=== PATIENT | male | born 1945 | race Caucasian/White ===

== ENCOUNTER 2021-08-26 10:41 | Outpatient (CLI) | payer MEDICARE, SELFPAY ==
--- NOTE | ~2021-08-26 | MR_ITS ---
EXAMINATION: MR brain/brain stem wo con DATE: 08/26/2021 11:55 INDICATION: Other amnesia. TECHNIQUE: Magnetic resonance imaging (MRI) of the brain and brainstem was performed without intraven ous contrast. Sequences included sagittal and axial T1-weighted FSE, axial diffusion-weighted FS EPI, axial T2*-weighted GRE, axial T2-weighted FLAIR Propeller, and axial T2-weighted Propeller. Apparent diffusion coefficient (ADC) maps were created. COMPARISON: Head CT 08/22/2010 FINDINGS: There is diffuse brain volume loss. There are scattered areas of nonspecific increased T2-w eighted signal intensity in the cerebral white matter, which is within normal limits for the patient' s age. There is no intracranial hemorrhage, acute infarction, or abnormal intracranial mass lesion. T he ventricles are normal in size. The orbits are normal. There is mucosal thickening in the paranasal sinuses. The mastoid air cells are normal. IMPRESSION: 1. Normal aging brain. Reviewed, dictated and finalized at location A. T METAL ERECTOR IMPRESSION: 1. Normal aging brain.
== END 2021-08-26 10:42 | disposition home or self-care (01) ==
PROVIDERS: PCP Family Medicine; Visit Provider Nurse Practitioner Family
DX: R41.3 Other amnesia (principal); R51.9 Headache, unspecified
CPT/HCPCS: 70551

== ENCOUNTER 2022-02-01 14:17 | Emergency (ER) | payer MEDICARE, SELFPAY ==
[2022-02-01 14:24] VITALS: BP 116/79; PULSE 76; RESP 20; TEMP 36.4; O2SAT 96
--- NOTE | 2022-02-01 14:25 | ED.URI ---
HPI - URI/Sore Throat General Chief Complaint: Upper Respiratory Infection Stated Complaint: uri Time Seen by Provider: 02/01/22 14:25 Source: patient, family, RN notes reviewed and old records reviewed Mode of arrival: ambulatory Limitations: no limitations History of Present Illness HPI Narrative: 76-year-old male presents to the [facility] with complaints of left-sided sinus pressure with congestion, Left frontal headache, left ear pain since yesterday. States he tried couple [id number] products with no relief. Denies any fevers. Denies chest pain or shortness of breath. No abdominal pain MD elicited complaint: rhinorrhea, nasal congestion and sinus pain Pertinent past history: sinusitis Consistency: constant Related Data Home Medications Medication Instructions Recorded Confirmed finasteride 5 mg PO DAILY 08/27/19 02/01/22 aspirin 325 mg tablet,delayed 325 mg PO DAILY 08/17/21 02/01/22 release duloxetine 30 mg capsule,delayed 30 mg PO DAILY 09/21/21 02/01/22 release Allergies Allergy/AdvReac Type Severity Reaction Status Date / Time No Known Allergies Allergy Verified 12/11/21 10:37 Review of Systems Review of Systems: All systems reviewed & are unremarkable except as noted in HPI and below Constitutional: Constitutional: Reports no additional constitutional complaints, Denies chills, Denies fever(s) and Denies headache(s) Eyes: Eyes: Reports no additional eye complaints, Denies change in vision and Denies photophobia ENT: Reports as per HPI, Denies change in voice, Denies vertigo, Denies dizziness, Reports headache(s), Denies lip swelling, Reports nasal congestion, Reports nasal discharge, Reports post nasal drip, Reports sinus pain, Reports sinus pressure and Denies sore throat Cardiovascular: Cardiovascular: Reports no additional cardiovascular complaints, Denies chest pain, Denies syncope, Denies rapid heart rate and Denies dyspnea Respiratory: Respiratory: Reports no additional respiratory complaints, Denies cough, Denies dyspnea and Denies wheezing Gastrointestinal: Gastrointestinal: Reports no additional gastrointestinal complaints, Denies abdominal pain, Denies diarrhea, Denies nausea and Denies vomiting Musculoskeletal: Musculoskeletal: Reports no additional musculoskeletal complaints, Denies back pain and Denies numbness Integumentary/Breasts: Skin/Breast: Reports system reviewed and no additional complaints, except as docu Neurologic: Reports system reviewed and no additional complaints, except as documented, Denies vertigo, Denies dizziness, Denies syncope, Denies headache(s), Denies focal weakness and Denies numbness Psychiatric: Psychiatric: Reports no additional psychiatric complaints Allergic/Immunologic: Allergic/Immunologic: Reports no additional allergic/immunologic complaints and Denies wheezing PMFSH Past Medical History Medical History Acute sinusitis, unspecified Allergic contact dermatitis due to plants, except food Basal cell carcinoma of nose BMI 26.0-26.9,adult BMI 27.0-27.9,adult BMI 28.0-28.9,adult Body mass index [BMI] 29.0-29.9, adult (09/24/17) BPH (benign prostatic hyperplasia) Chronic fatigue Depression Dietary counseling and surveillance (08/23/16) Elevated BUN Elevated glucose Encounter for immunization (07/06/19) Encounter for screening for malignant neoplasm of prostate History of skin cancer History of vitamin D deficiency Hx of nephrolithotomy with removal of calculi Hypothyroid Insomnia due to medical condition Leg swelling Low vitamin B12 level Lung nodule Major depressive disorder, single episode, unspecified Mixed hyperlipidemia Obesity AIDA (obstructive sleep apnea) Other viral agents as the cause of diseases classified elsewhere Patent foramen ovale Surgically repaired Pre-operative clearance Primary osteoarthritis of right knee Screening for diabetes mellitus TIA (transient ischemic at
== END 2022-02-01 14:42 | disposition home or self-care (01) ==
PROVIDERS: Emergency Provider Nurse Practitioner
DX: J32.9 Chronic sinusitis, unspecified (principal); N40.0 Benign prostatic hyperplasia without lower urinary tract symptoms; Z79.82 Long term (current) use of aspirin; Z85.828 Personal history of other malignant neoplasm of skin; E78.2 Mixed hyperlipidemia; E03.9 Hypothyroidism, unspecified; G47.33 Obstructive sleep apnea (adult) (pediatric); M17.11 Unilateral primary osteoarthritis, right knee; Z86.73 Personal history of transient ischemic attack (TIA), and cerebral infarction without residual deficits; Z96.652 Presence of left artificial knee joint; Z96.612 Presence of left artificial shoulder joint; Z96.611 Presence of right artificial shoulder joint; Z90.89 Acquired absence of other organs
CPT/HCPCS: 99213; G0463

== ENCOUNTER 2023-02-18 09:15 | Outpatient (CLI) | payer MEDICARE, SELFPAY ==
[2023-02-18 09:47] LABS: Basophils Absolute Auto 0.1 K/mm3 (0.0-0.1); Basophils Percent Auto 1.6 % (0.2-1.2); Eosinophils Absolute Auto 0.5 K/mm3 (0-0.3); Eosinophils Percent Auto 9.1 % (0-4.4); Hematocrit 46.3 % (42.0-52.0); Immature Granulocyte Absolute 0.01 K/mm3 (0.00-0.031); Immature Granulocyte Percent A 0.2 % (0-0.5); Lymphocytes Absolute Auto 2.31 K/mm3 (0.9-3.2); Lymphocytes Percent Auto 41.8 % (18.3-44.2); Mean Corpuscular HGB Conc 32.4 g/dl (32-36); Mean Corpuscular Hemoglobin 30.5 pg (26-34); Mean Corpuscular Volume 94.1 fl (80-100); Mean Platelet Volume 10.2 fl (7.4-10.4); Monocytes Absolute Auto 0.5 K/mm3 (0.1-0.6); Monocytes Percent Auto 8.9 % (2.6-8.5); Neutrophils Absolute Auto 2.1 K/mm3 (1.3-6.7); Neutrophils Percent Auto 38.4 % (45.5-73.1); Platelet Count Result 205 k/mm3 (150-375); Red Blood Count 4.92 M/mm3 (4.6-6.20); Red Cell Distribution Width 13.3 % (11.5-14.5); White Blood Count 5.5 K/mm3 (4.5-10.0)
[2023-02-18 09:59] LABS: Alanine Aminotransferase 22 U/L (6-50); Albumin Level 4.1 g/dL (3.5-5.1); Alkaline Phosphatase 71 U/L (38-126); Anion Gap 6 mmol/L (8-16); Aspartate Amino Transferase 31 U/L (17-59); Bilirubin,Total 0.8 mg/dL (0.2-1.3); Blood Urea Nitrogen 22 mg/dL (9-20); Calcium 9.4 mg/dL (8.4-10.2); Carbon Dioxide 29 mmol/L (22-30); Chloride 105 mmol/L (98-107); Cholesterol 208 mg/dL (0-200); Estimated Glomerular Filt Rate 59; Glucose 79 mg/dL (65-110); HDL Direct 43 mg/dL; Potassium 3.8 mmol/L (3.4-5.0); Sodium 140 mmol/L (137-145); Triglycerides 112 mg/dL (<150)
[2023-02-18 10:10] LABS: LDL Cholesterol Direct 132 mg/dL
[2023-02-18 10:13] LABS: Iron 68 ug/dL (49-181)
[2023-02-18 10:28] LABS: Prostate Specific Antigen 1.2 ng/mL (< OR = 4.0); Thyroid Stimulating Hormone 0.162 uIU/mL (0.465-4.680)
[2023-02-18 10:31] LABS: Free T4 Free Thyroxine 1.38 ng/mL (0.78-2.19); Vitamin D 25 Hydroxy 23.3 ng/mL
[2023-02-18 10:52] LABS: Percent Iron Saturation 20 % (20-50)
== END 2023-02-18 09:16 | disposition home or self-care (01) ==
PROVIDERS: PCP Family Medicine; Visit Provider Family Medicine
DX: I48.0 Paroxysmal atrial fibrillation (principal); N40.0 Benign prostatic hyperplasia without lower urinary tract symptoms; Z12.5 Encounter for screening for malignant neoplasm of prostate; D64.9 Anemia, unspecified; E55.9 Vitamin D deficiency, unspecified; E03.9 Hypothyroidism, unspecified; E78.2 Mixed hyperlipidemia; Z13.220 Encounter for screening for lipoid disorders
CPT/HCPCS: 36415; 80048; 80061; 80076; 82306; 82607; 83540; 83550; 84153; 84439; 84443; 85025; G0103

== ENCOUNTER 2023-05-08 15:02 | Outpatient (CLI) | payer MEDICARE, SELFPAY ==
--- NOTE | ~2023-05-08 | XR_ITS ---
EXAMINATION: XR chest 2V Exam Date/Time: 05/08/2023 15:22 CDT HISTORY: J18.9 - Pneumonia, unspecified organism Comparison: 08/27/2019. RESULT: Lines, tubes, and devices: Bilateral shoulder arthroplasties. Atrial occlusion device. Lungs and pleura: Low volumes. Elevated right hemidiaphragm. Calcified right lung granuloma. Streaky bibasilar opacities. Minimal bilateral posterior costophrenic angle blunting. Cardiomediastinal silhouette: Stable. Other: No acute osseous or upper abdominal finding. IMPRESSION: Bibasilar atelectasis/consolidation. Trace bilateral pleural effusions. Reviewed, dictated and finalized at location K.
[2023-05-08 15:49] LABS: Basophils Absolute Auto 0.1 K/mm3 (0.0-0.1); Basophils Percent Auto 0.7 % (0.2-1.2); Eosinophils Absolute Auto 0.5 K/mm3 (0-0.3); Eosinophils Percent Auto 2.9 % (0-4.4); Hematocrit 42.4 % (42.0-52.0); Hemoglobin 13.6 g/dL (14.0-18.0); Immature Granulocyte Absolute 0.09 K/mm3 (0.00-0.031); Immature Granulocyte Percent A 0.6 % (0-0.5); Lymphocytes Absolute Auto 3.29 K/mm3 (0.9-3.2); Lymphocytes Percent Auto 20.9 % (18.3-44.2); Mean Corpuscular HGB Conc 32.1 g/dl (32-36); Mean Corpuscular Hemoglobin 29.6 pg (26-34); Mean Corpuscular Volume 92.2 fl (80-100); Mean Platelet Volume 10.7 fl (7.4-10.4); Monocytes Absolute Auto 1.1 K/mm3 (0.1-0.6); Monocytes Percent Auto 6.7 % (2.6-8.5); Neutrophils Absolute Auto 10.7 K/mm3 (1.3-6.7); Neutrophils Percent Auto 68.2 % (45.5-73.1); Platelet Count Result 282 k/mm3 (150-375); Red Cell Distribution Width 14.8 % (11.5-14.5); White Blood Count 15.7 K/mm3 (4.5-10.0)
== END 2023-05-08 15:03 | disposition home or self-care (01) ==
PROVIDERS: PCP Family Medicine; Visit Provider Physician Assistant Medical
DX: J18.9 Pneumonia, unspecified organism (principal); J98.11 Atelectasis
CPT/HCPCS: 36415; 71046; 85025

== ENCOUNTER 2023-05-27 12:44 | Outpatient (CLI) | payer MEDICARE, SELFPAY ==
--- NOTE | ~2023-05-27 | XR_ITS ---
Clinical Indication: Pneumonia PA and lateral views of the chest: Comparison: 05/08/2023 Findings: Stable calcified right upper lobe granuloma. The lungs are otherwise clear, without evidenc e of focal consolidation or pleural effusion. Stable eventration of the right hemidiaphragm. Cardiome diastinal silhouette is within normal limits. Chronic left rib fracture deformities are again noted. Bilateral shoulder arthroplasties are present. Impression: No acute pulmonary abnormality. Reviewed, dictated and finalized at location . Impression: No acute pulmonary abnormality.
[2023-05-27 13:09] LABS: Basophils Absolute Auto 0.1 K/mm3 (0.0-0.1); Eosinophils Absolute Auto 0.6 K/mm3 (0-0.3); Eosinophils Percent Auto 6.3 % (0-4.4); Hematocrit 42.1 % (42.0-52.0); Hemoglobin 13.4 g/dL (14.0-18.0); Immature Granulocyte Absolute 0.04 K/mm3 (0.00-0.031); Immature Granulocyte Percent A 0.4 % (0-0.5); Lymphocytes Absolute Auto 2.83 K/mm3 (0.9-3.2); Lymphocytes Percent Auto 27.7 % (18.3-44.2); Mean Corpuscular HGB Conc 31.8 g/dl (32-36); Mean Corpuscular Hemoglobin 30.1 pg (26-34); Mean Corpuscular Volume 94.6 fl (80-100); Mean Platelet Volume 10.3 fl (7.4-10.4); Monocytes Absolute Auto 0.6 K/mm3 (0.1-0.6); Monocytes Percent Auto 6.1 % (2.6-8.5); Neutrophils Percent Auto 58.5 % (45.5-73.1); Platelet Count Result 239 k/mm3 (150-375); Red Blood Count 4.45 M/mm3 (4.6-6.20); Red Cell Distribution Width 15.3 % (11.5-14.5); White Blood Count 10.2 K/mm3 (4.5-10.0)
[2023-05-27 13:20] LABS: Anion Gap 8 mmol/L (8-16); Blood Urea Nitrogen 16 mg/dL (9-20); Calcium 10.1 mg/dL (8.4-10.2); Carbon Dioxide 28 mmol/L (22-30); Chloride 104 mmol/L (98-107); Estimated Glomerular Filt Rate > 60; Glucose 96 mg/dL (65-110); Sodium 140 mmol/L (137-145)
== END 2023-05-27 12:45 | disposition home or self-care (01) ==
PROVIDERS: PCP Family Medicine; Visit Provider Family Medicine
DX: J18.9 Pneumonia, unspecified organism (principal); J90 Pleural effusion, not elsewhere classified
CPT/HCPCS: 36415; 71046; 80048; 85025

== ENCOUNTER 2023-06-20 15:31 | Outpatient (CLI) | payer MEDICARE, SELFPAY ==
--- NOTE | ~2023-06-20 | US_ITS ---
EXAMINATION: US thyroid DATE: 06/20/2023 16:15 INDICATION: Nontoxic single thyroid nodule. TECHNIQUE: Multiple ultrasound images of the thyroid were obtained. COMPARISON: Ultrasound 07/21/2012 FINDINGS: The right thyroid lobe is absent. The left thyroid lobe measures 4.4 x 1.7 x 1.9 cm. The left thyroi d lobe demonstrates heterogeneous echogenicity and increased vascularity. IMPRESSION: 1. 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 2. Right hemithyroidectomy. Reviewed, dictated and finalized at location E. IMPRESSION: 1. Chronically heterogeneous, hypervascular left thyroid lobe, likely chronic l ymphocytic (Dionisio) thyroiditis. 2. Right hemithyroidectomy.
== END 2023-06-20 15:32 | disposition home or self-care (01) ==
PROVIDERS: PCP Family Medicine; Visit Provider Physician Assistant Medical
DX: E04.1 Nontoxic single thyroid nodule (principal)
CPT/HCPCS: 76536

== ENCOUNTER 2023-06-26 13:19 | Outpatient (CLI) | payer MEDICARE, SELFPAY ==
[2023-06-26 14:06] LABS: NT Pro B Type Natriuretic Pept 73 pg/mL (19.9-100)
[2023-06-26 14:22] LABS: Free T4 Free Thyroxine 1.67 ng/mL (0.78-2.19)
[2023-06-26 14:27] LABS: Thyroid Stimulating Hormone 0.064 uIU/mL (0.465-4.680)
[2023-07-01 04:15] LABS: Thyroid Peroxidase Antibodies <1 IU/mL (<9)
[2023-07-01 16:44] LABS: ANA Cascade Screen Negative (Negative)
== END 2023-06-26 13:20 | disposition home or self-care (01) ==
PROVIDERS: PCP Family Medicine; Visit Provider Physician Assistant Medical
DX: E03.9 Hypothyroidism, unspecified (principal); E06.5 Other chronic thyroiditis; E04.1 Nontoxic single thyroid nodule; R91.1 Solitary pulmonary nodule; I50.9 Heart failure, unspecified; J90 Pleural effusion, not elsewhere classified
CPT/HCPCS: 36415; 83880; 84439; 84443; 86038; 86376

== ENCOUNTER 2023-09-20 08:16 | Outpatient (CLI) | payer MEDICARE, SELFPAY ==
--- NOTE | 2023-10-17 19:55 | WPDSLEEPSTUD ---
Sleep Study Date of Study: 09/20/23 Ordering Provider: Sivan Weston MD Interpreting Physician: Maral Rangel DO Sleep Study Type: Split Polysomnogram Height: 1.73 m Weight: 72.575 kg Body Mass Index: 24.3 Neck Circumference (inches): 15.25 [place]: 6 Reason for Sleep Study Snoring, morning headaches Sleep History The patient is a 78 year that had a sleep study ordered by his [employer] for evaluation of sleep apnea. The patient occasionally awakens from sleep short of breath. He occasionally awakens at night with heartburn, belching or cough. He occasionally snores and it is occasionally loud enough that others complain. He constantly has trouble sleeping when he has a cold. He rarely has breathing problems at night observed by himself or others. He rarely sweats excessively at night. He denies having heart palpitations or irregular heartbeats during the night. He rarely falls asleep during the day never falls asleep while driving. He denies sleep paralysis and cataplexy. He rarely has trouble at school or work due to sleepiness. He rarely experiences vivid dreamlike scenes upon awakening or falling asleep. He denies feeling afraid of going to sleep. He denies having nightmares. He denies remembering his dreams. He occasionally has thoughts racing through his mind. He rarely feels sad, depressed or anxious. He rarely has muscular tension. He denies noticing parts of his body jerk. He denies kicking during the night. He denies having crawling and aching feelings in his legs but will rarely has leg pain during the night. He denies grinding his teeth during sleep and denies awakening with morning jaw pain. He is rarely bothered by pain during the day and rarely awakened by pain during the night. He denies waking up feeling stiff morning. He rarely wakes up with sore or achy muscles. He rarely wakes up with pain in the neck, spine and other joints. He goes to bed at 11:00 p.m. on both weekdays and weekends. He wakes up twice throughout the night for unknown reasons and it can take him 1-2 hours to fall back asleep. He wakes up at 7:00 a.m. on both weekdays and weekends. He typically gets 6-8 hours of sleep per night. He currently lives with his . He denies consuming any caffeinated beverages within 2 hours of bedtime. He denies engaging in physical exercise before bedtime. He will read before falling asleep. He will take naps in afternoon or the evening but they are not refreshing. He consumes 1-2 cups of caffeinated beverage per day. He will consume alcoholic beverages. He denies tobacco and recreational drug use. [facility], [facility] Past Medical History Medical History Acute sinusitis, unspecified Allergic contact dermatitis due to plants, except food Basal cell carcinoma of nose BMI 25.0-25.9,adult BMI 26.0-26.9,adult BMI 27.0-27.9,adult BMI 28.0-28.9,adult Body mass index [BMI] 29.0-29.9, adult (09/24/17) BPH (benign prostatic hyperplasia) Chronic cough Chronic fatigue Depression Dietary counseling and surveillance (08/23/16) Elevated BUN Elevated glucose Encounter for immunization (07/06/19) Encounter for screening for malignant neoplasm of prostate History of skin cancer History of vitamin D deficiency Hx of nephrolithotomy with removal of calculi Hypothyroid Insomnia due to medical condition Left inguinal hernia Leg swelling Low vitamin B12 level Lung nodule Major depressive disorder, single episode, unspecified Mixed hyperlipidemia Nasal drainage Obesity AIDA (obstructive sleep apnea) Other viral agents as the cause of diseases classified elsewhere Patent foramen ovale Surgically repaired Pleural effusion Pre-operative clearance Primary osteoarthritis of right knee Screening for diabetes mellitus TIA (transient ischemic attack) Tinea corporis Tinea cruris Viral URI Vitamin D deficiency Surgical History Surgical History (Rev
[2023-10-17 20:05] VITALS: BMI 24.3
== END 2023-09-21 06:47 | disposition home or self-care (01) ==
LOC: ANHCSM 08:18
PROVIDERS: PCP Family Medicine; Visit Provider Internal Medicine Critical Care Medicine
DX: G47.33 Obstructive sleep apnea (adult) (pediatric) (principal)
CPT/HCPCS: 95811

== ENCOUNTER 2023-10-28 00:50 | Day surgery (SDC) | payer MEDICARE, SELFPAY ==
[2023-10-23 14:27] VITALS: BMI 24.3
--- NOTE | 2023-10-23 14:37 | PC.NURSE ---
PRE-OP INSTRUCTIONS, PLEASE READ CAREFULLY Report to the Outpatient Waiting Room, entrance under the green pavilion located off [facility], at time _0730_ on date _10/28/23_. Planned Procedure Time: _0930_. Time changes happen often and if your time is changed the preop area will call you the afternoon before. - You and your visitor will be asked to self-screen and do not enter if you have any COVID symptoms. - A mask is optional within the hospital at this time. Patients may have clear liquids (water, carbonated beverages, clear teas, apple juice) until 3 hours prior to surgery (0630 AM) with a maximum of 20 ounces. - No food from midnight until time of surgery Take the following medications with a SIP of water the morning of surgery: _LEVOTHYROXINE, TRELEGY INHALER & TYLENOL, ALBUTEROL INHALER IF NEEDED _ DO NOT STOP ANY OF YOUR OTHER PRESCRIPTION MEDICATIONS PRIOR TO SURGERY ?EXCEPT THE FOLLOWING Medications to discontinue per DR. MANZO - _ASPIRIN OF TODAY, Date to take last dose 10/23/23 - TAKE TYLENOL FOR PAIN INSTEAD_ Please no make-up, nail sammarinese, hairspray, perfume, deodorant, or body powder the day of surgery. No jewelry (including any body piercings) or valuables the day of surgery, leave them at home. Please take a shower or bath the night before, or the morning of, surgery with an antibacterial (HIBICLENS) soap. Wear comfortable, loose fitting clothing. - Jewelry must be removed prior to entering the operating room. Rings and piercings that are not removed may be cut off. - The hospital will not accept responsibility for valuables. - Please leave all valuables, including medications, at home the day of surgery. If you are going home after surgery, a licensed transportation driver must drive you home. - NO public transportation without another adult if you receive anesthesia. - We recommend that an adult stay with you for 24 hours following discharge. - We also recommend that you do not drive, make important decision, drink alcoholic beverages, or take any drugs that were not prescribed by your health care provider for at least 24 hours after your discharge time. Follow any additional instructions given to you from your surgeon. If you or anyone in your household have experienced Covid symptoms in the past week, please notify your surgeon or the nurse liaison at the phone number below for possible testing. Telephone instructions given to _PATIENT__and asked if any additional questions and then verbalized understanding. Patient advised to call surgeon office or pre surgery nurse liaison [phone] if any additional questions.
[2023-10-28] VITALS (11 sets, daily range): BP systolic 102–137; BP diastolic 62–87; PULSE 53–85; RESP 11–18; TEMP 36.1–37.1; O2SAT 94–100
--- NOTE | 2023-10-28 07:18 | WPDHPUPDATE1 ---
History and Physical Update Update Date/Time: 10/28/23 07:18 History and Physical has been reviewed, including an updated exam of the patient. There are NO changes in the patient's condition. Risks, benefits, and alternatives have been discussed and questions answered. Patient agrees to proceed with procedure.
[2023-10-28] MEDS: ACETAMINOPHEN 500 MG TABLET 1000 MG PO (08:15)
[2023-10-28] MEDS: LACTATED RINGERS 1,000 ML 30 ML IV CONT ×3 (08:20→12:42)
--- NOTE | 2023-10-28 08:25 | ECG_ITS ---
Measurements Intervals [place] Rate: 57 P: 50 VA: 206 QRS: 11 QRSD: 113 T: 29 QT: 408 QTc: 398 Interpretive Statements SINUS BRADYCARDIA INTRAVENTRICULAR CONDUCTION DELAY MINIMAL Q WAVES- LAT/HIGH LAT LEADS BORDERLINE ECG COMPARED TO ECG 08/27/2019 15:21:45 INTRAVENTRICULAR CONDUCTION DELAY NOW PRESENT Electronically Signed On 10-28-2023 9:11:50 [employer] WORK[employer] by Andrae Eats D.O.
--- NOTE | 2023-10-28 08:29 | WPDANESEPPF ---
Anes - Initial Pre Proc Eval Procedure: Operation Date: 10/28/23 09:30 Proposed Procedures p Robotic Incarcerated Left Inguinal Hernia Repair with Mesh - Shania Ha MD Date/Time: 10/28/23 08:29 Surgeon: Shania Ha MD Pre Op Diagnosis: incarc left inguinal hernia Patient Data Age: 78 Gender: M Height: 1.73 m Weight: 72.72 kg Allergies Allergy/AdvReac Type Severity Reaction Status Date / Time No Known Allergies Allergy Verified 10/28/23 08:05 Home Medications Medication Instructions Recorded Confirmed Type aspirin 325 mg tablet,delayed 650 mg PO DAILY PRN Pain 08/17/21 10/28/23 History release azelastine 205.5 mcg (0.15 %) 2 spray intranasal DAILY #30 mL 02/12/23 10/28/23 Rx nasal spray ketoconazole 2 % topical cream 1 applic topical BID #60 grams 02/12/23 10/28/23 Rx albuterol sulfate 90 mcg/actuation 1 inh inhalation Q4H PRN 09/27/23 10/28/23 Rx aerosol inhaler (ProAir HFA) bronchospasm #6.7 grams fluticasone fur. 100 mcg-umeclid 1 inh inhalation DAILY 09/30/23 10/28/23 History 62.5 mcg-vilant 25 mcg inhalat.powder (Trelegy Ellipta) levothyroxine 88 mcg tablet 88 mcg PO DAILY #90 tabs 10/01/23 10/28/23 Rx acetaminophen 325 mg tablet 650 mg PO QID PRN Pain 10/23/23 10/28/23 History (Tylenol) benzonatate 200 mg capsule 200 mg PO TID PRN cough #60 caps 10/25/23 Rx Patient hx anesthesia problems: none Family hx anesthesia problems: none Results Review: All pre-operative results and documents have been reviewed as part of the pre-operative evaluation. [facility] Past Medical History Medical History Acute sinusitis, unspecified Allergic contact dermatitis due to plants, except food Basal cell carcinoma of nose BMI 25.0-25.9,adult BMI 26.0-26.9,adult BMI 27.0-27.9,adult BMI 28.0-28.9,adult Body mass index [BMI] 29.0-29.9, adult (09/24/17) BPH (benign prostatic hyperplasia) Chronic cough Chronic fatigue Depression Dietary counseling and surveillance (08/23/16) Elevated BUN Elevated glucose Encounter for immunization (07/06/19) Encounter for screening for malignant neoplasm of prostate History of skin cancer History of vitamin D deficiency Hx of nephrolithotomy with removal of calculi Hypothyroid Insomnia due to medical condition Left inguinal hernia Leg swelling Low vitamin B12 level Lung nodule Major depressive disorder, single episode, unspecified Mixed hyperlipidemia Nasal drainage Obesity AIDA (obstructive sleep apnea) Other viral agents as the cause of diseases classified elsewhere Patent foramen ovale Surgically repaired Pleural effusion Pre-operative clearance Primary osteoarthritis of right knee Screening for diabetes mellitus TIA (transient ischemic attack) Tinea corporis Tinea cruris Viral URI Vitamin D deficiency Surgical History Surgical History H/O hemorrhoidectomy H/O partial thyroidectomy H/O sinus surgery History of left knee replacement History of umbilical hernia repair S/p bilateral shoulder joint replacement S/P patent foramen ovale closure S/P T&A (status post tonsillectomy and adenoidectomy) Family History Family History Father Cerebrovascular accident Heart disease Mother Family history of dementia Dementia Sibling , MVC Social History Social History Social History: The patient lives with his for Marry. She is a durable power hot box checker. He wishes to be a full code. He has 1 child. He is retired from working on a [employer] and [employer]. Smoking packs per day: 1 Smoking cigarettes per day: 20.0 Smoking status: Former smoker Tobacco type: cigarettes, pipe and cigars Second hand tobacco smoke exposure: No Additional smoking assessment c
[2023-10-28] MEDS: KETOROLAC 15 MG/ML VIAL (*BKC) IV PUSH (08:47)
[2023-10-28] MEDS: ceFAZolin 2 GM/D5W 50 ML 2 GM/50 ML BAG IVPB (09:09)
[2023-10-28] MEDS: BUPIVACAINE/EPINEPHRINE 0.5% 30 ML VIAL INFILTRATE (09:48)
--- NOTE | 2023-10-28 10:31 | W.PM.PROC2 ---
Procedure Note - Detailed Date of Procedure 10/28/23 Pre-op Diagnosis incarcerated left inguinal hernia Post-op Diagnosis Same Procedure Performed robotic assisted incarcerated left inguinal hernia repair with mesh Surgeon Shania Ha MD Anesthesia General Indications 78 y/o M c LIH and worsening groin pain over last few weeks Findings indirect left inguinal hernia with incarcerated sigmoid colon Description of Procedure Patient was brought into the operating room and placed in the supine position. After adequate induction of general anesthesia, the patient was prepped and draped in normal sterile fashion. A time-out was then done to verify the patient's identity, as well as the procedure being performed. I began by making a 8 mm incision in the supraumbilical region, a Veress needle was then placed into the peritoneal cavity. CO2 gas was then insufflated and after adequate pneumoperitoneum was achieved, the Veress needle was removed. I then placed an 8 mm trocar through this incision. I then placed the endoscope through this trocar site and under direct visualization placed 2 further 8 mm ports in the right and left mid abdomen. The [employer] robot was then docked to the 3 trocar sites. I then scrubbed out and went to the robotic console. Upon examining the pelvis, it was noted that the patient had a moderate left inguinal hernia. There was some incarcerated sigmoid colon in the defect that was carefully reduced. The right side was examined and no hernia defect was noted. I began by making a preperitoneal flap approximately 6 cm superior to the defect. This flap was carried medially past the umbilical ligaments and laterally to the transversalis. It then began dissection of my medial compartment taking this down to the pubic tubercle. I then began the lateral dissection taking this down to the transversalis fascia. Once these compartments were achieved, I began dissection around the cord structures. A moderate sized indirect hernia was noted at this point. Using careful dissection, was able to reduce indirect hernia sac off the cord structures. Of note, there was still a hard mass in the left groin but the hernia sac was completely dissected out. I also reduced a sizable lipoma of the cord. Once this was adequately done, I went ahead and placed a large piece of 3D Max mesh into the abdominal cavity. The mesh was carefully positioned, centering the center of the mesh over the indirect defect. Once this was done, was very satisfied with our repair. Using 3-0 Vicryl sutures, I tacked the mesh medially to Vipin's ligament. Two lateral sutures were placed from the mesh to the transversalis fascia. I then closed the peritoneal flap with a running 2.0 V Lock suture. The abdomen was then desufflated, and all ports were removed. All incisions were then closed with the 4.0 monocryl suture. Dermabond was placed on each wound. The patient tolerated the procedure well, was extubated in the operating room postoperatively, and will now be transferred to the recovery room in stable condition. Implants large 3DMax mesh Estimated Blood Loss 10 Drains No Packing No Pathology None sent Complications No immediate complications Condition Stable Disposition PACU [facility] Billing Surgery - Charge Forward: Surgery Billing
== END 2023-10-28 14:22 | disposition home or self-care (01) ==
PROVIDERS: PCP Family Medicine; Visit Provider Surgery
PROC: 8E0Y4CZ Robotic Assisted Procedure of Lower Extremity, Percutaneous Endoscopic Approach (ICD-10-PCS; CPT 49650; principal; 2023-10-28 09:30)
DX: K40.30 Unilateral inguinal hernia, with obstruction, without gangrene, not specified as recurrent (principal); F32.A Depression, unspecified; E55.9 Vitamin D deficiency, unspecified; E03.9 Hypothyroidism, unspecified; E53.8 Deficiency of other specified B group vitamins; E78.2 Mixed hyperlipidemia; N40.0 Benign prostatic hyperplasia without lower urinary tract symptoms; F32.9 Major depressive disorder, single episode, unspecified; G47.33 Obstructive sleep apnea (adult) (pediatric); G47.01 Insomnia due to medical condition; R05.3 Chronic cough; R53.82 Chronic fatigue, unspecified; Z79.82 Long term (current) use of aspirin; Z79.51 Long term (current) use of inhaled steroids; Z98.890 Other specified postprocedural states; Z87.891 Personal history of nicotine dependence; Z85.828 Personal history of other malignant neoplasm of skin; Z87.09 Personal history of other diseases of the respiratory system; Z86.73 Personal history of transient ischemic attack (TIA), and cerebral infarction without residual deficits; Z82.49 Family history of ischemic heart disease and other diseases of the circulatory system
CPT/HCPCS: 49507; S2900; 36415; 86850; 86900; 86901; 93005; A9270; C1781; J0690; J1100; J1885; J2405; J2704; J3010; J7120

== ENCOUNTER 2023-11-29 11:02 | Outpatient (CLI) | payer MEDICARE, SELFPAY ==
[2023-11-29 11:25] LABS: Hematocrit 45.1 % (42.0-52.0); Hemoglobin 14.7 g/dL (14.0-18.0); Mean Corpuscular HGB Conc 32.6 g/dl (32-36); Mean Corpuscular Hemoglobin 30.4 pg (26-34); Mean Corpuscular Volume 93.4 fl (80-100); Mean Platelet Volume 10.4 fl (7.4-10.4); Platelet Count Result 168 k/mm3 (150-375); Red Blood Count 4.83 M/mm3 (4.6-6.20); Red Cell Distribution Width 13.3 % (11.5-14.5); White Blood Count 6.7 K/mm3 (4.5-10.0)
[2023-11-29 11:36] LABS: Alanine Aminotransferase 15 U/L (6-50); Alkaline Phosphatase 66 U/L (38-126); Anion Gap 5 mmol/L (8-16); Aspartate Amino Transferase 30 U/L (17-59); Bilirubin,Total 1.5 mg/dL (0.2-1.3); Blood Urea Nitrogen 17 mg/dL (9-20); Calcium 9.8 mg/dL (8.4-10.2); Carbon Dioxide 28 mmol/L (22-30); Chloride 107 mmol/L (98-107); Estimated Glomerular Filt Rate > 60; Glucose 98 mg/dL (65-110); Potassium 3.9 mmol/L (3.4-5.0); Sodium 140 mmol/L (137-145)
[2023-11-29 12:05] LABS: Thyroid Stimulating Hormone 0.273 uIU/mL (0.465-4.680)
[2023-11-29 12:14] LABS: Free T4 Free Thyroxine 1.17 ng/mL (0.78-2.19)
== END 2023-11-29 11:03 | disposition home or self-care (01) ==
LOC: ANHLAB 11:06
PROVIDERS: PCP Family Medicine; Visit Provider Physician Assistant
DX: D64.9 Anemia, unspecified (principal); E07.9 Disorder of thyroid, unspecified; Z90.09 Acquired absence of other part of head and neck; E03.9 Hypothyroidism, unspecified; R53.83 Other fatigue
CPT/HCPCS: 36415; 80053; 84439; 84443; 85027

== ENCOUNTER 2023-12-06 08:54 | Outpatient (CLI) | payer MEDICARE, SELFPAY ==
--- NOTE | 2023-12-06 12:16 | WPDPFTINT ---
PFT Procedure Performed PFT Procedure Performed Spirometry with Pre/Post Bronchodilator Plethysmography (Lung Vol) Diffusing Cap (DLCO) PFT Interpretation Lung volumes were measured with the body plethysmography method. Lung volumes are unremarkable. Spirometry showed normal expiratory flow rates and a normal FEV1 to FVC ratio 71%. Following administration of a bronchodilator there was no significant increase in the expiratory flow rates. Lung diffusion capacity is within the normal range at 79% predicted. The flow-volume loop is unremarkable. Impression: Spirometry, lung volumes, and lung diffusion capacity all within the normal range.
--- NOTE | 2023-12-06 12:17 | WPDSIXMINUTE ---
Six Minute Walk Procedure Procedure Performed Pulmonary Stress Test (6 min walk) Six Minute Walk Six Minute Walk: This 6 minute walk test was carried out with the patient breathing ambient air. The pre-walk baseline oxyhemoglobin saturation was 95%. The patient walked 305 m with no stops during testing. During the walk the oxyhemoglobin saturation remained in the range of 93%-96%. Impression: No evidence of oxyhemoglobin desaturation on this testing.
== END 2023-12-06 08:55 | disposition home or self-care (01) ==
LOC: ANHPFT 08:55
PROVIDERS: PCP Family Medicine; Visit Provider Internal Medicine Critical Care Medicine
DX: R06.09 Other forms of dyspnea (principal); J44.9 Chronic obstructive pulmonary disease, unspecified; Z87.891 Personal history of nicotine dependence
CPT/HCPCS: 94060; 94726; 94729

== ENCOUNTER 2024-04-02 13:38 | Outpatient (CLI) | payer MEDICARE, SELFPAY ==
[2024-04-02 14:25] LABS: Basophils Absolute Auto 0.1 K/mm3 (0.0-0.1); Basophils Percent Auto 1.3 % (0.2-1.2); Eosinophils Absolute Auto 0.5 K/mm3 (0-0.3); Hematocrit 45.1 % (42.0-52.0); Hemoglobin 14.7 g/dL (14.0-18.0); Immature Granulocyte Absolute 0.01 K/mm3 (0.00-0.031); Immature Granulocyte Percent A 0.1 % (0-0.5); Lymphocytes Absolute Auto 3.07 K/mm3 (0.9-3.2); Mean Corpuscular HGB Conc 32.6 g/dl (32-36); Mean Corpuscular Hemoglobin 30.6 pg (26-34); Mean Corpuscular Volume 93.8 fl (80-100); Mean Platelet Volume 10.7 fl (7.4-10.4); Monocytes Absolute Auto 0.6 K/mm3 (0.1-0.6); Monocytes Percent Auto 7.6 % (2.6-8.5); Neutrophils Absolute Auto 3.6 K/mm3 (1.3-6.7); Platelet Count Result 187 k/mm3 (150-375); Red Blood Count 4.81 M/mm3 (4.6-6.20); Red Cell Distribution Width 13.2 % (11.5-14.5); White Blood Count 7.9 K/mm3 (4.5-10.0)
[2024-04-02 15:32] LABS: Anion Gap 6 mmol/L (4-12); Blood Urea Nitrogen 21 mg/dL (9-20); Calcium 9.8 mg/dL (8.4-10.2); Carbon Dioxide 26 mmol/L (22-30); Chloride 108 mmol/L (98-107); Estimated Glomerular Filt Rate > 60; Glucose 76 mg/dL (65-110); Potassium 3.6 mmol/L (3.4-5.0); Sodium 140 mmol/L (137-145)
[2024-04-02 16:03] LABS: Iron 108 ug/dL (49-181)
[2024-04-02 16:10] LABS: Thyroid Stimulating Hormone 0.272 uIU/mL (0.465-4.680)
[2024-04-02 16:14] LABS: Percent Iron Saturation 32 % (20-50)
[2024-04-02 16:19] LABS: Free T4 Free Thyroxine 1.27 ng/mL (0.78-2.19)
== END 2024-04-02 13:39 | disposition home or self-care (01) ==
LOC: ANHLAB 13:42
PROVIDERS: PCP Family Medicine; Visit Provider Family Medicine
DX: E87.0 Hyperosmolality and hypernatremia (principal); D64.9 Anemia, unspecified; E06.9 Thyroiditis, unspecified
CPT/HCPCS: 36415; 80048; 82728; 83540; 83550; 84439; 84443; 85025

== ENCOUNTER 2024-04-14 12:21 | Outpatient (CLI) | payer MEDICARE, SELFPAY ==
--- NOTE | ~2024-04-14 | MR_ITS ---
EXAMINATION: MR brain/brain stem wo con DATE: 04/14/2024 13:20 INDICATION: Other amnesia. TECHNIQUE: Magnetic resonance imaging (MRI) of the brain and brainstem was performed without intraven ous contrast. COMPARISON: Brain MRI 08/26/2021 FINDINGS: There are scattered areas of nonspecific increased T2-weighted signal intensity in the cere bral white matter, which is within normal limits for the patient's age. There is no intracranial hemo rrhage, acute infarction, or abnormal intracranial mass lesion. The ventricles are normal in size. Th e mastoid air cells are normal. There is mucosal thickening in the paranasal sinuses. The orbits are normal. IMPRESSION: 1. Normal aging brain. Reviewed, dictated and finalized at location A. IMPRESSION: 1. Normal aging brain.
== END 2024-04-14 12:22 | disposition home or self-care (01) ==
PROVIDERS: PCP Family Medicine; Visit Provider Family Medicine
DX: R41.3 Other amnesia (principal)
CPT/HCPCS: 70551

== ENCOUNTER 2025-04-07 11:06 | Outpatient (CLI) | payer MEDICARE, SELFPAY ==
--- NOTE | ~2025-04-07 | US_ITS ---
EXAMINATION: US carotid duplex BI DATE: 04/07/2025 16:44 CDT INDICATION: Cerebral infarction TECHNIQUE: Grayscale, color Doppler, and pulsed Doppler images of the cervical carotid arteries were obtained. The degree of vessel stenosis is placed in one of the following categories: normal, <50%, 50-69%, >=7 0% but less than near-occlusion, near-occlusion, or total occlusion. Note that percent stenosis relative to normal distal artery lumen diameter is indirectly measured fro m velocity measurements as described originally by Armando, et al. Radiology 2003; 229:340-346 and upda gordy by Kalyan Robert et al STROKE 2012;43(3);915-921. COMPARISON: None. FINDINGS: There is mild atherosclerosis of both carotid arteries. Peak systolic velocity (in cm/s) is detailed below RIGHT: Right common carotid artery (CCA): 49 cm/s. Right internal carotid artery (ICA) PSV: 61 cm/s. Right ICA end-diastolic velocity (EDV): 15 cm/s. Right ICA/CCA PSV ratio is 1.2. Right external carotid artery (ECA): 58cm/s. There is antegrade flow in the right vertebral artery LEFT: Left common carotid artery (CCA): 40 cm/s. Left internal carotid artery (ICA) PSV: 56 cm/s. Left ICA end-diastolic velocity (EDV): 16 cm/s. Left ICA/CCA PSV ratio is 1.4. Left external carotid artery (ECA): 62cm/s. There is antegrade flow in the left vertebral artery. IMPRESSION: 1. Less than 50% stenosis in the right internal carotid artery. 2. Less than 50% stenosis in the left internal carotid artery. Reviewed, dictated and finalized at location A.
--- OUTSIDE RECORDS SUMMARY | 2025-04-07 10:34 | XMS_ITS | Clinical Summary ---
Author Organization [facility] Address [address] [place] [address] Care Team Providers Care Nursing Informatics Specialist Name Role Phone Herbert Gan MD Primary Care Provider [phone] Allergies No known active allergies Medications levothyroxine (SYNTHROID) 100 MCG tablet Take 1 tablet (100 mcg total) by mouth every morning. Active aspirin 325 MG tablet Take 1 tablet (325 mg total) by mouth daily. Active Active Problems Problem Noted Date Diagnosed Date Sepsis ([facility]) 04/16/2023 Sepsis due to pneumonia ([facility]) 2022 Immunizations Immunization Administration Dates Next Due Tdap (Boostrix) 04/04/2024 Social History Tobacco Use Types Packs/Day Years Used Date Smoking Tobacco: Never Smokeless Tobacco: Never Tobacco Cessation:Counseling Given: Not Answered Alcohol Use Standard Drinks/Week Comments Not Currently 0 (1 standard drink = 0.6 oz pur e alcohol) Humiliation, Afraid, Rape, and Kick questionnair e Answer Date Recorded Within the last year, have y ou been afraid of your partner or ex-partner? No 04/16/2023 Within the last year, have y ou been humiliated or emotionally abused in other ways by your partner or ex-partner? No Within the last year, have y ou been kicked, hit, slapped, or otherwise physically hurt by your partner or ex-partner? No 04/16/2023 Within the last year, have y ou been raped or forced to have any kind of sexual activity by your partner or ex-partner? No 04/16/2023 Social Connection and Isolat ion Panel [NHANES] Answer Date Recorded In a typical week, how many times do you talk on the phone with family, friends, or neighbors? More than three times a week 04/16/2023 How often do you get togethe r with friends or relatives? More than three times a week 04/16/2023 How often do you attend chur ch or confucianist services? More than 4 times per year 04/16/2023 Do you belong to any clubs o r organizations such as latter-day groups, unions, fraternal or athletic groups, or school groups? No 04/16/2023 How often do you attend meet ings of the clubs or organizations you belong to? Never 04/16/2023 Are you , , di vorced, , never , or living with a partner? 04/16/2023 AUDIT-C Answer Date Recorded Q1: How often do you have a drink containing alcohol? Never 04/16/2023 Q2: How many drinks containi ng alcohol do you have on a typical day when you are drinking? Patient does not drink Q3: How often do you have si x or more drinks on one occasion? Never 04/16/2023 Overall Financial Resource Strain (CARDIA) Answe r Date Recorded How hard is it for you to pa y for the very basics like food, housing, medical care, and heating? Not hard at all 04/16/2023 [facility] of Occupat ional Health - Occupational Stress Questionnaire Answer Date Recorded Do you feel stress - tense, restless, nervous, or anxious, or unable to sleep at night because your mind is troubled all the time - these days? Not at all 04/16/2023 Exercise Vital Sign Answer Date Recorde d Days of Exercise per Week Not on file 2022 On average, how many minutes do you engage in exercise at this level? 0 min 04/16/2023 Hunger Vital Sign Answer Date Recorded Within the past 12 months, y ou worried that your food would run out before you got the money to buy more. Never true 04/16/20 23 Within the past 12 months, t he food you bought just didn't last and you didn't have money to get more. Never true 04/16/2023 PRAPARE - Transportation Answer Date Re corded In the past 12 months, has l ack of transportation kept you from medical appointments or from getting medications? No 03/22 In the past 12 months, has l ack of transportation kept you from meetings, work, or from getting things needed for daily living? No 04/16/2023 Housing Stability Vital Sign Answer Dejon e Recorded In the last 12 months, was t here a time when you were not able to pay the mortgage or rent on time? No 04/16/2023 In the last 12 months, how many places have you lived? 1 04/16/2023 In the last 12 months, was t here a time when you did not have a steady place to sleep or slept in a senior living (including now)? No 04/16/2023 Sex and Gender Information Value Date Recorded Sex Assigned at Not on file Legal Sex Male 5:01 PM CDT Gender Identity Not on file Sexual Orientation Not on file Last Filed Vital Signs Vital Sign Reading Time Taken Comments Blood Pressure 105/68 04/04/2024 7:24 PM CDT Pulse 52 04/04/2024 7:24 PM CDT Temperature 36.7 C (98 F) 04/04/2024 7:24 PM CDT Respiratory Rate 16 04/04/2024 7:24 PM CDT Oxygen Saturation 95% 04/04/2024 7:24 PM CDT Inhaled Oxygen Concentration - - Weight 76 kg (167 lb 8.8 oz) 04/04/2024 5:29 PM CDT Height 165.1 cm (5' 5) 04/04/2024 5:29 PM CDT Body Mass Index 27.88 04/04/2024 5:29 PM CDT Plan of Treatment Health Maintenance Due Date Last Done Comments Zoster Vaccines (1 of 2) 1994 Annual Medicare Wellness Visit 2009 RSV Immunization or 60+ Years (1 - 1-dose 75+ series) 2019 COVID-19 Vaccine ( season) 2024 08/23/2022, 08/21/2021, 12/24/2020, Additional history exists PHQ-2 (Physician [place]) 10/21/2024 DTaP, Tdap and Td Vaccines (2 - Td or Tdap) 04/04/2034 04/04/2024 Pneumococcal Vaccine: 50+ Years Completed 08/23/2022 Meningococcal B Vaccine Aged Out No l onger eligible based on patient's age to complete this topic Meningococcal Vaccine Aged Out No tomeka mark eligible based on patient's age to complete this topic RSV Immunizations Under 20 Months Aged Out No longer eligible based on patient's age to complete this topic Goals Goal Patient Goal Type Associated Problems Recent Progress Patient-Stated? Author Health - patient able to perform ADLs independently Lifestyle No Ashvin Alanis, RN Insurance [facility] MEDICARE Advance Directives * Full Code (Latest Code Status on File) Date Activated Date Inactivated Comments 04/14/2023 5:20 AM 04/15/2023 1:38 PM Care Teams Nursing Informatics Specialist Relationship Specialty Start Date End Date Herbert Gan MD [address] [place] [address] PCP - General 01/02/13
--- OUTSIDE RECORDS SUMMARY | 2025-04-07 10:34 | XMS_ITS | Referral Summary ---
Author Organization [facility] Address [address] [place] [address] Care Team Providers Care Sales And Leasing Consultant Name Role Phone Herbert Gan MD Primary Care Provider [phone] Encounters Date Type Department Care Team Description 03/09/2025 1:30 PM CDT Procedure visit [facility] Otolaryngology [address] [place] [id number] Kim Salazar Au.D. Fitting and adjustment of hearing aid (Primary Dx) from Last 3 Months Allergies No known active allergies Medications aspirin 81 mg tablet Active atorvastatin (LIPITOR) 80 mg tablet Active finasteride (PROPECIA) 1 mg tabletIndicatio ns:Male Patterned Baldness Active oxybutynin (DITROPAN) 5 mg tablet Take 5 mg by mouth nightly. at bedtime. 12 8 Active levothyroxine (SYNTHROID, LEVOTHROID) 100 mcg tablet Take 100 mcg by mouth daily. 3 8 Active fluticasone (FLONASE) 50 mcg/actuation nasal spray Administer 1 spray into each nostril daily. 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 Gender Identity Not on file Sexual Orientation Not on file Last Filed Vital Signs Vital Sign Reading Time Taken Comments Blood Pressure 132/77 11/27/2018 1:11 PM RECONCILIATION MACHINE OPERATOR Pulse 94 01/23/2018 9:12 AM CDT Temperature - - Respiratory Rate - - Oxygen Saturation 90% 01/23/2018 9:12 AM CDT Inhaled Oxygen Concentration - - Weight 88.9 kg (196 lb) 11/27/2018 1:11 PM RECONCILIATION MACHINE OPERATOR Height 165.1 cm (5' 5) 11/27/2018 1:11 PM RECONCILIATION MACHINE OPERATOR Body Mass Index 32.62 11/27/2018 1:11 PM RECONCILIATION MACHINE OPERATOR Plan of Treatment Not on file Insurance MEDICARE MEDICARE AN[employer] TRADITIONAL BL[employer]ADITIONAL [place] Care Teams Sales And Leasing Consultant Relationship Specialty Start Date End Date Herbert Gan MD PCP - General 01/23/18
--- OUTSIDE RECORDS SUMMARY | 2025-04-07 10:34 | XMS_ITS | Clinical Summary ---
Author Organization [facility] Address [facility] [place] [address] Care Team Providers Care Alumni Relations Coordinator Name Role Phone Herbert Gan MD Primary Care Provider Allergies No known active allergies Medications aspirin [...] nodular goiter 10/03/2012 Other chronic sinusitis 07/28/2012 Encounters Date Type Department Care Team Description 03/09/2025 1:30 PM CDT Procedure visit [facility] Otolaryngology [address] [place], [place] [address] [address] Kim Salazar Au.D. Fitting and adjustment of hearing aid (Primary Dx) from Last 3 Months Surgical History Surgery Date Site/Laterality Comments THYROID SURGERY SINUS SURGERY HERNIA REPAIR HEMORRHOID SURGERY Medical History Medical History Date Comments Cataract Bone fracture Stroke (HCC) Sinusitis Tinnitus HL (hearing loss) Family History Medical History Relation Name Comments Heart disease Father Family history of cardiac disorder - (Added by TAMI Conv) Arthritis Mother Family history of arthritis - (Added by TAMI Conv) Heart disease Mother Relation Name Status Comments Brother Father Mother Social History Tobacco Use Types Packs/Day Years Used Date Smoking Tobacco: Former Smokeless Tobacco: Never Alcohol Use Standard Drinks/Week Comments Yes 0 (1 standard drink = 0.6 oz pur e alcohol) Sex and Gender Information Value Date Recorded Sex Assigned at Not on file 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 Gender Identity Not on file Sexual Orientation Not on file Obstetrics History Last Filed Vital Signs Vital Sign Reading Time Taken Comments Blood Pressure 132/77 11/27/2018 1:11 PM INSPECTING MACHINE ADJUSTER Pulse 94 01/23/2018 9:12 AM CDT Temperature - - Respiratory Rate - - Oxygen Saturation 90% 01/23/2018 9:12 AM CDT Inhaled Oxygen Concentration - - Weight 88.9 kg (196 lb) 11/27/2018 1:11 PM INSPECTING MACHINE ADJUSTER Height 165.1 cm (5' 5) 11/27/2018 1:11 PM INSPECTING MACHINE ADJUSTER Body Mass Index 32.62 11/27/2018 1:11 PM INSPECTING MACHINE ADJUSTER Plan of Treatment Not on file Insurance MEDICARE [facility] Address: [facility] [facility] [address] [address] [place] [address] MEDICARE [facility] Member Subscriber Plan / Payer (Ef fective 2018-Present) Name:Ernie Baker Relation to Subscriber:Self Name:ERNIE BAKER Payer ID:[id number] (NAIC) Type: [employer] Address: [address] [place] [id number] [facility] Care Teams Alumni Relations Coordinator Relationship Specialty Start Date End Date Herbert Gan MD PCP - General 01/23/18
[2025-04-07 12:36] LABS: Free T4 Free Thyroxine 1.53 ng/dL (0.78-2.19)
[2025-04-07 12:41] LABS: Thyroid Stimulating Hormone 0.138 uIU/mL (0.465-4.680)
--- OUTSIDE RECORDS SUMMARY | 2025-04-07 12:52 | XMS_ITS | Clinical Summary ---
Author Organization [facility] Address [facility] [place] [address] Care Team Providers Care Manufacturing Engineering Manager Name Role Phone Herbert Gan MD Primary Care Provider [phone] Allergies No known active allergies Medications aspirin [...] Description 03/09/2025 1:30 PM CDT Procedure visit [facility] Otolaryngology [address] [place], [place] [address] [address] Kim Salazar Au.D. 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 BI DEVELOPER Gender Identity Not on file Sexual Orientation Not on file Obstetrics History Last Filed Vital Signs Vital Sign Reading Time Taken Comments Blood Pressure 132/77 11/27/2018 1:11 PM SAS BI DEVELOPER Pulse 94 01/23/2018 9:12 AM CDT Temperature - - Respiratory Rate - - Oxygen Saturation 90% 01/23/2018 9:12 AM CDT Inhaled Oxygen Concentration - - Weight 88.9 kg (196 lb) 11/27/2018 1:11 PM SAS BI DEVELOPER Height 165.1 cm (5' 5) 11/27/2018 1:11 PM SAS BI DEVELOPER Body Mass Index 32.62 11/27/2018 1:11 PM SAS BI DEVELOPER Plan of Treatment Not on file Insurance MEDICARE [facility] Address: [facility] [address] [place] [address] MEDICARE [facility] Member Subscriber Plan / Payer (Ef fective 2018-Present) Name:Ernie Baker Relation to Subscriber:Self Name:ERNIE BAKER Payer ID:[id number] (NAIC) Type: [employer] Address: [address] [place] [id number] [facility] Care Teams Manufacturing Engineering Manager Relationship Specialty Start Date End Date Herbert Gan MD PCP - General 01/23/18
--- OUTSIDE RECORDS SUMMARY | 2025-04-07 12:52 | XMS_ITS | Clinical Summary ---
Author Organization [facility] Address [address] [place] [address] Care Team Providers Care Machine Try Out Setter Name Role Phone Herbert Gan MD Primary Care Provider [phone] Allergies No known active allergies Medications levothyroxine (SYNTHROID) 100 MCG tablet Take 1 tablet (100 mcg total) by mouth every morning. Active aspirin 325 MG tablet Take 1 tablet (325 mg total) by mouth daily. Active Active Problems Problem Noted Date Diagnosed Date Sepsis ([facility]) 04/16/2023 Sepsis due to pneumonia ([facility]) 2022 Immunizations Immunization Administration Dates [...] often do you attend chur ch or mandaeism services? More than 4 times per year 04/16/2023 Do you belong to any clubs o r organizations such as protestant groups, unions, fraternal or athletic groups, or [...] and heating? Not hard at all 04/16/2023 [facility] [place] of Occupat ional Health - Occupational Stress [...] place to sleep or slept in a skilled nursing (including now)? No 04/16/2023 Sex and Gender [...] 08/21/2021, 12/24/2020, Additional history exists PHQ-2 (Physician [place]) 10/21/2024 DTaP, Tdap and Td Vaccines (2 [...] independently Lifestyle No Ashvin Alanis, RN Insurance [employer] MEDIC[employer] Advance Directives * Full Code (Latest Code Status on File) Date Activated Date Inactivated Comments 04/14/2023 5:20 AM 04/15/2023 1:38 PM Care Teams Machine Try Out Setter Relationship Specialty Start Date End Date Herbert Gan MD [address] [place] [address] PCP - General 01/02/13
--- OUTSIDE RECORDS SUMMARY | 2025-04-07 12:52 | XMS_ITS | Referral Summary ---
Author Organization [facility] Address [address] [place] [address] Care Team Providers Care Ambulance Paramedic Name Role Phone Herbert Gan MD Primary Care Provider Encounters Date Type Department Care Team Description 03/09/2025 1:30 PM CDT Procedure visit [facility] Otolaryngology [address] [place] [phone] Kim Salazar Au.D. 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 Gender Identity Not on file Sexual Orientation Not on file Last Filed Vital Signs Vital Sign Reading Time Taken Comments Blood Pressure 132/77 11/27/2018 1:11 PM COMMISSIONED DEFENCE FORCE OFFICER Pulse 94 01/23/2018 9:12 AM CDT Temperature - - Respiratory Rate - - Oxygen Saturation 90% 01/23/2018 9:12 AM CDT Inhaled Oxygen Concentration - - Weight 88.9 kg (196 lb) 11/27/2018 1:11 PM COMMISSIONED DEFENCE FORCE OFFICER Height 165.1 cm (5' 5) 11/27/2018 1:11 PM COMMISSIONED DEFENCE FORCE OFFICER Body Mass Index 32.62 11/27/2018 1:11 PM COMMISSIONED DEFENCE FORCE OFFICER Plan of Treatment Not on file Insurance MEDICARE MEDICARE ANTH TRADITIONAL [place]ITIONAL [place] Care Teams Ambulance Paramedic Relationship Specialty Start Date End Date Herbert Gan MD PCP - General 01/23/18
== END 2025-04-07 11:07 | disposition home or self-care (01) ==
PROVIDERS: Nurse Practitioner Adult Health; PCP Family Medicine; Referring Provider Family Medicine; Visit Provider Psychiatry & Neurology Neurology
DX: I65.23 Occlusion and stenosis of bilateral carotid arteries (principal); I63.9 Cerebral infarction, unspecified; E03.9 Hypothyroidism, unspecified; G62.9 Polyneuropathy, unspecified; G56.00 Carpal tunnel syndrome, unspecified upper limb; F03.90 Unspecified dementia, unspecified severity, without behavioral disturbance, psychotic disturbance, mood disturbance, and anxiety
CPT/HCPCS: 36415; 84439; 84443; 93880

== ENCOUNTER 2025-05-11 09:15 | Outpatient (CLI) | payer MEDICARE, SELFPAY ==
--- OUTSIDE RECORDS SUMMARY | 2025-05-11 09:22 | XMS_ITS | Data Portability ---
Author Organization [facility] OFFICE Address [address] [place] [address] Care Team Providers Care Office Clerk Routine Name Role Phone FAMILIA BURRELL Primary Care Provider Assessment No assessment recorded. Plan of Treatment Reminders Order Date Submit Date Provider Last Modified By Organization Details Last Modified Time Details Appointments None recorde d. Lab None recorde d. Referral None recorde d. Procedures None recorde d. Surgeries None recorde d. Imaging US, echocar diogram , transth oracic, complet e, w/ color flow 019 10/12/20 19 [email or web address] Not available 0 09:21:28 Medication Orders None recorde d. Patient TargetsNo targets recorded. Patient Instructions Encounter Date Encounter Id Patient Instructions Last Modified By Organization Details Last Modified Time 10/12/2019 [id number] Exercise advised Low cholesterol diet advised Low sodium diet advised. [email or web address] Not available 10/12/2019 16:18:56 Reason for Referral None Reported. Results Created Date Observation Date Name Description Value Unit Range Abnormal Flag Note LastModifiedBy Organization Detail LastModifiedTime 09/21/20 19 09/14/2019 XR, knee No observ ation record ed. [email or web address] Not Available 2018 15:07:34 10/16/20 19 10/12/2019 elect rocar diogr am No observ ation record ed. [email or web address] Not Available 2018 11:04:43 Result Notes None recorded. Problems Name Problem SNOMED Code Status Onset Date Resolution Date Notes Provider Name and Address Organization Details Recorded Time History of right total knee replaceme nt 970901327171 9102 Active 2018 [place] [facility] 9 13:28:55 Benign prostatic hyperplas ia 676387375 Active 2018 [facility] null, [place] - [facility] 9 13:29:05 Hypothyro idism 04442906 Active 2018 [facility] [place], [place] - [facility] 9 13:29:14 Depressiv e disorder 95001450 Active 2018 [facility], [place] - [facility] 9 13:29:29 History of malignant neoplasm of skin 866642839 Active 2018 [facility] [place] [facility] 9 13:30:16 Obesity 553380323 Active 2018 [facility], [place] - [facility] 9 13:30:34 Obstructi ve sleep apnea syndrome 09916144 Active 2018 [facility], [facility] 9 13:30:39 Closure of patent foramen ovale Active 2018 [facility], [facility] 9 13:31:42 Hemorrhoi dectomy Active 2018 [facility], [facility] 9 06:08:31 Problem Notes None recorded. Procedures Surgical History Date Name Laterality Status Provider Name and Address Organization Details Recorded Time Tonsillectomy/Adenoi dectomy completed [facility] 10/01/2019 13:32:02 Unlisted px accessory sinus completed [facility] 10/01/2019 13:32:13 arthroplasty of knee completed [facility] 10/09/2019 06:09:33 hemorrhoidectomy completed [facility] 10/01/2019 13:35:14 partial substernal thyroidectomy completed [facility] 10/01/2019 13:35:34 hernia repair completed [facility] 10/01/2019 13:35:45 Shoulder joint surgery completed [facility] 10/09/2019 06:10:20 closure of patent foramen ovale completed [facility] 10/09/2019 06:10:48 Imaging Results None recorded. Procedure Notes None recorded. Medical Equipment None Reported. Allergies No known drug allergies Medications Name Sig Start Date Stop Date Status Note LastModified by Organization Details LastModified Time atorvastatin 40 mg tablet Take 1 tablet every day by oral route. active Not Available Not Available No t Available riboflavin (vitamin B2) 100 mg tablet Take 1 tablet every day by oral route. active Not Available Not Available No t Available levothyroxine 100 mcg tablet Take 1 tablet every day by oral route. active Not Available Not Available No t Available oxycodone-eros taminophen 5 mg-325 mg tablet active Not Available Not Available Not Available aspirin 325 mg tablet,delaye d release Take 1 tablet every day by oral route. active Not Available Not Available No t Available mupirocin 2 % topical ointment active Not Available Not Available Not Available metoprolol succinate ER 25 mg tablet,extend ed release 24 hr Take 1 tablet every day by oral route. active Not Available Not Available No t Available oxybutynin chloride 5 mg tablet Take 1 tablet every day by oral route at bedtime . active Not Available Not Available No t Available fluticasone propionate 50 mcg/actuation nasal spray,suspens ion 10/12 completed Not Available Not Available Not Available finasteride 5 mg tablet Take 1 tablet every day by oral route. active Not Available Not Available No t Available amoxicillin 875 mg-potassium clavulanate 125 mg tablet 10/12 completed Not Available Not Available Not Available [facility] Cold and Allergy 1 tablet BID active Not Available Not Available No t Available Eliquis 2.5 mg tablet Take 1 tablet twice a day by oral route. active Not Available Not Available No t Available Vitals Date Recorded Body height Body mass index (BMI) Body weight Heart rate Respiratory rate Oxygen saturation Oxygen saturation in Arterial blood by Pulse oximetry Systolic And Diastolic Provider Name and Address Organization Details Last Updated DateTime 9 166.37 cm 30 kg/m2 27338.4 g 86 /min 18 /min 98 % 98 % 110/80 mm[Hg] Cortes Darby i, MD [address] [place], [address] [place] - [facility] 9 16:09:41 Social History Question Answer Notes LastModified by Organizat ion Details LastModified Time Tobacco Smoking Status Former Smoker Not Available [employer] 08/23/2020 03:30:41 What Is Your Level Of Caffeine Consumption? Occasional [id number] Information not available 08/23/2020 How Much Tobacco Do You Chew? None [id number] Information not available 08/23/2020 What Type Of Diet Are You Following? REGULAR [id number] Information not available 08/23/2020 Which Illicit Or Recreational Drugs Have You Used? None [id number] Information not available 08/23/2020 Marital Status [email or web address] Informatio n not available 09/29/2019 How Much Tobacco Do You Smoke? No [id number] Information not available 08/23/2020 General Stress Level Medium [email or web address] Information not available 09/29/2019 Sex: Unknown Functional Status Question Answer Note LastModified by Organizat ion Details LastModified Time What is your level of alcohol consumption? Occasional [id number] Information not available 08/23/2020 Do you or have you ever used smokeless tobacco? Never used smokeless tobacco [id number] Information not available 08/23/2020 What is your occupation? Retired [id number] Information not available 08/23/2020 Do you or have you ever used e-cigarettes or vape? Never used electronic cigarettes [id number] Information not available 08/23/2020 What is your exercise level? Occasional [id number] Information not available 08/23/2020 Mental Status None recorded. Family History Relationship Description Onset Age of this Age Resolved Age Notes LastModified by Organization Details LastModified Time Father Cerebrovascu lar accident [email or web address] Not available 16:41:33 Mother History of dementia [email or web address] Not available 09/29 16:41:51 Medical History Condition Response Atrial Fibrillation Y Thyroid Disease Y Depression Y TIA Y Sleep Apnea Y Past Encounters Encounter ID Performer Location Encounter Start Date Encounter Closed Date Diagnosis/Indication Diagnosis SNOMED-CT Code Diagnosis ICD10 Code Diagnosis Note [id number] Cortes Ramirez MD [place] [facility] [address] [place] [phone] 10/12/2019 15:32:14 10/12/2019 16:19:17 Paroxysmal atrial fibrillation 564487280 I48.0 now in [place] Toprol and Eliquiswil l get Echo FU Essential hypertension 28464195 I10 Now well controlled Transient cerebral ischemia 276108482 G45.9 Health Concerns Section Related Observation LastModified by Organization Detai ls LastModified Time None Recorded Concern Status LastModified by Organization Details LastModified Time None Recorded Advance Directives Directive None Recorded Payers Insurance Date Sequence Insurance Name Policy Number Policy Garcia Covered Member ID Garcia Member ID Guarantor Name 09/29/2019 1 [place] Ernie Murillo Samuel [id number] Ernie Murillo Samuel 10/12/2019 2 [place] [id number] Ernie Murillo Samuel [id number] Ernie Murillo Samuel Notes Date Note Type Note Provider Name and Address Organization Details Recorded Time 10/12/2019 text/html 10/12/19 CC: Hospital follow up 74 year old male with h/o presents to office for cardiac evaluation following hospital visit for TKA. Pt had run of atrial fibrillation when he was in the hospital, did well after that, was started on Toprol and Eleiquis, now he feels well. He denied any chest pain, shortness of breath, orthopnea, dizziness, palpitation, or syncope 09/16/19 CBC: WBC 10.6, RBC 4.10, HGB 12.9, HCT 39.0, PLT 173 BMP 09/16/2019 NA 139 K 3.8 CH 106 CO2 25 BUN 16 CR 0.70 GL 138 CA 8.8 TSH 0.225 Results from this visit, or from the past: BMP 09/16/2019 NA 139 K 3.8 CH 106 CO2 25 BUN 16 CR 0.70 GL 138 CA 8.8 TSH 0.225CBC 09/16/2019 WBC 10.6 RBC 4.10 HGB 12.9 HCT 39.0 PLT 173 10/12/19 EKG: Sinus rhythm. WNL XR knee 09/14/2019 Total right knee arthroplasty in near anatolic alignment RADHA [facility] - [facility] 10/12/2019 16:28:22
--- OUTSIDE RECORDS SUMMARY | 2025-05-11 09:22 | XMS_ITS | Patient Health Record ---
Author Organization [facility] Address [address] [facility] [address] [place] [address] Care Team Providers Care Body Engineer Name Role Phone Kevin Cee Unavailable [phone] Reason For Referral No Information Medications Medication SIG (Take, Route, Frequency, Duration) Notes Start Date End Date Status DULoxetine HCl 60 MG Oral Active buPROPion HCl ER (XL) 300 MG Oral Active buPROPion HCl ER (XL) 150 MG Oral Active Levothyroxine Sodium 100 MCG Oral Active Escitalopram Oxalate 10 MG Oral Active clonazePAM 0.5 MG Oral Ac tive Escitalopram Oxalate 20 MG Oral Active Finasteride 5 MG Oral Act lidia Atorvastatin Calcium 40 MG Oral Active oxyBUTYnin Chloride 5 MG Oral Active DULoxetine HCl 30 MG Oral Active Plan Of Treatment No Information Insurance Providers Payer Name Payer Address Payer Phone Subscriber Number Group Number Insured Name Patient Relationship to Insured Coverage Start Date Coverage End Date Medicare-Dc Medicare [address] [facility] [phone] [id number] FALLON FERMIN Self - patient is the insured [facility] Medicare Supplement [address] [place] [address] [id number] FALLON FERMIN Self - patient is the insured
--- OUTSIDE RECORDS SUMMARY | 2025-05-11 09:22 | XMS_ITS | Clinical Summary ---
Author Organization [facility] Address [facility] [place] [address] Care Team Providers Care Software Team Leader Name Role Phone Herbert Gan MD Primary Care Provider [phone] Allergies No known active allergies Medications aspirin [...] Description 03/09/2025 1:30 PM CDT Procedure visit [facility] Otolaryngology [address] [place], [place] [address] [address] Kim Salazar Au.D. 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 Gender Identity Not on file Sexual Orientation Not on file Obstetrics History Last Filed Vital Signs Vital Sign Reading Time Taken Comments Blood Pressure 132/77 11/27/2018 1:11 PM [employer]JECT CREW WORKER Pulse 94 01/23/2018 9:12 AM CDT Temperature - - Respiratory Rate - - Oxygen Saturation 90% 01/23/2018 9:12 AM CDT Inhaled Oxygen Concentration - - Weight 88.9 kg (196 lb) 11/27/2018 1:11 PM PROJECT CREW WORKER Height 165.1 cm (5' 5) 11/27/2018 1:11 PM PROJECT CREW WORKER Body Mass Index 32.62 11/27/2018 1:11 PM PROJECT CREW WORKER Plan of Treatment Not on file Insurance MEDICARE [facility] Address: [facility] [address] [place] [address] MEDICARE [facility] Member Subscriber Plan / Payer (Ef fective 2018-Present) Name:Ernie Baker Relation to Subscriber:Self Name:ERNIE BAKER Payer ID:[id number] (NAIC) Type: ALLIANCE Address: [address] [place] [id number] [facility] Care Teams Software Team Leader Relationship Specialty Start Date End Date Herbert Gan MD PCP - General 01/23/18
--- OUTSIDE RECORDS SUMMARY | 2025-05-11 09:22 | XMS_ITS | Clinical Summary ---
Author Organization [facility] Address [address] [place] [address] Care Team Providers Care Therapy Site Coordinator Name Role Phone Herbert Gan MD Primary Care Provider [phone] Allergies No known active allergies Medications levothyroxine (SYNTHROID) 100 MCG tablet Take 1 tablet (100 mcg total) by mouth every morning. Active aspirin 325 MG tablet Take 1 tablet (325 mg total) by mouth daily. Active Active Problems Problem Noted Date Diagnosed Date Sepsis ([facility]) 04/16/2023 Sepsis due to pneumonia ([facility]) 2022 Immunizations Immunization Administration Dates Next Due [...] often do you attend chur ch or nondenominational services? More than 4 times per year 04/16/2023 Do you belong to any clubs o r organizations such as rastafarian groups, unions, fraternal or athletic groups, or [...] and heating? Not hard at all 04/16/2023 [facility] Occupat ional Health - Occupational Stress [...] place to sleep or slept in a chcf (including now)? No 04/16/2023 Sex and Gender [...] 08/21/2021, 12/24/2020, Additional history exists PHQ-2 (Physician [place]) 10/21/2024 DTaP, Tdap and Td Vaccines (2 [...] independently Lifestyle No Ashvin Alanis, RN Insurance [facility] MEDICARE Advance Directives * Full Code (Latest Code Status on File) Date Activated Date Inactivated Comments 04/14/2023 5:20 AM 04/15/2023 1:38 PM Care Teams Therapy Site Coordinator Relationship Specialty Start Date End Date Herbert Gan MD [address] [place] [address] PCP - General 01/02/13
--- OUTSIDE RECORDS SUMMARY | 2025-05-11 09:22 | XMS_ITS | Referral Summary ---
Author Organization [facility] Address [address] [place] [address] Care Team Providers Care Upholstery Parts Sorter Name Role Phone Herbert Gan MD Primary Care Provider [phone] Encounters Date Type Department Care Team Description 03/09/2025 1:30 PM CDT Procedure visit [facility] Otolaryngology [address] [place] [phone] Kim Salazar Au.D. Fitting and adjustment [...] on file Legal Sex Male 1:35 AM [employer]CHO[employer] CO[employer]IN[employer] Gender Identity Not on file Sexual Orientation Not on file Last Filed Vital Signs Vital Sign Reading Time Taken Comments Blood Pressure 132/77 11/27/2018 1:11 PM [employer] COORDINATOR Pulse 94 01/23/2018 9:12 AM CDT Temperature - - Respiratory Rate - - Oxygen Saturation 90% 01/23/2018 9:12 AM CDT Inhaled Oxygen Concentration - - Weight 88.9 kg (196 lb) 11/27/2018 1:11 PM [employer] CO[employer]IN[employer] Height 165.1 cm (5' 5) 11/27/2018 1:11 PM [employer] COORDINATOR Body Mass Index 32.62 11/27/2018 1:11 PM [employer] COORDINATOR Plan of Treatment Not on file Insurance MEDICARE MEDICARE [employer] [place] Care Teams Upholstery Parts Sorter Relationship Specialty Start Date End Date Herbert Gan MD PCP - General 01/23/18
--- OUTSIDE RECORDS SUMMARY | 2025-05-11 09:23 | XMS_ITS | Data Portability ---
Author Organization [place] [employer], Main Office Address [address] [place] [address] Care Team Providers Care Fried Cake Maker Name Role Phone FAMILIA BURRELL Primary Care Provider [phone] FAMILIA BURRELL Referring Provider [phone] Assessment Encounter Date Assessment Date Assessment LastModified by Organization Details LastModified Time 04/19/2025 04/19/2025 This note is dictated and transcribed by [employer]. Grinder Set Up Operator variances may occur. Despite proofreading, typographical errors may occur. Occasional wrong-word or 'smbxy-c-[id number]' substitutions may have occurred due to the inherent limitations of voice recording. Read the chart carefully and recognize, using context, where substitutions have occurred. [email or web address] Not available 04/20/2025 09:40:32 Plan of Treatment Reminders Order Date Submit Date Provider Last Modified By Organization Details Last Modified Time Details Appointments Establish ed Patient 15 2024 10:30A Manolo Pemberton DPM Not available Not available Not available Lab None recorded. Referral None recorded. Procedures None recorded. Surgeries None recorded. Imaging XR, foot, 3 or more view 2024 025 [email or web address] [facility] [place], [address], [place], [address], 04/20/2025 10:48:57 XR, foot, 3 or more view 2024 025 [email or web address] [facility] [place], [address], [place], [address], 04/20/2025 09:43:16 Medication Orders None recorded. Patient TargetsNo targets recorded. Patient InstructionsNo instructions recorded. Reason for Referral None Reported. Results Created Date Observation Date Name Description Value Unit Range Abnormal Flag Note LastModifiedBy Organization Detail LastModifiedTime 04/20/20 25 XR, foot, 3 or more view No observ ation record ed. [email or web address] [facility] [place] [address], [place], [address], 04/20/2025 09:42:10 04/20/20 25 XR, foot, 3 or more view No observ ation record ed. [email or web address] [facility] [place] [address], [place], [address], 04/20/2025 09:43:10 Result Notes None recorded. Problems Name Problem SNOMED Code Status Onset Date Resolution Date Notes Provider Name and Address Organization Details Recorded Time Radi[employer] py follow-up 478817535 Active Not Available [facility] 3 16:27:32 Localized, primary osteoarthr itis of the shoulder region 726163009 Active Not Available [facility] 3 16:27:32 Shoulder joint pain 547534551 Active Not Available [facility] 3 16:27:32 Osteoarthr itis 937510791 Active Not Available [facility] 3 16:27:32 Tibialis tendinitis 19998402 Active Not Available [facility] 3 16:27:32 Seasonal allergy 116180710 Active 2024 Kym arriaga [facility] [employer] 5 14:52:27 Arthritis 9301959 Active 2024 Kym arriaga [employer] [facility] [employer] [facility] 5 14:52:36 Malignant neoplasm of skin 024039151 Active 2024 Kym arriaga [employer] [facility] [employer] [facility] 5 14:52:57 Frequent headache 323012787 Active 2024 Kym arriaga [employer] [facility] 5 14:53:22 Sleep disorder 69859851 Active 2024 [facility] 5 14:53:33 Disorder of lung 79288268 Active 2024 Kym arriaga, [facility] 5 14:53:43 Ear problem 353115283 Active 2024 [facility] 5 14:54:07 Pain in both feet 5951529207570 9102 Active 2024 Hudson Pemberton DPM [address], [place], [address] , [facility] 5 09:40:40 Bunion 545344060 Active 2024 Hudson Pemberton DPM [address], [place], [address] , [facility] 5 09:40:55 Notes:BOWEL PROBLEMS, DIMPLE IA Problem Notes None recorded. Medical Equipment None Reported. Allergies No known drug allergies Medications Name Sig Start Date Stop Date Status Note LastModified by Organization Details LastModified Time atorvastati n 40 mg tablet TAKE 1 TABLET EVERY DAY 04/19 completed Not Available Not Available Not Available prednisone 10 mg tablet TAKE 3 TABLET BY ORAL ROUTE EVERY DAY 09/07 completed Not Available Not Available Not Available doxycycline hyclate 100 mg capsule TAKE ONE CAPSULE BY MOUTH TWICE A DAY 09/07 completed Not Available Not Available Not Available donepezil 5 mg tablet TAKE 1 TABLET BY MOUTH ONCE DAILY IN THE MORNING FOR 2 WEEKS AND THEN INCREASE TO 2 TABLETS DAILY TO CONTINUE active Not Available Not Available No t Available polyethylen e glycol 3350 17 gram oral powder packet 09/07 completed Not Available Not Available Not Available benzonatate 200 mg capsule TAKE 1 CAPSULE BY MOUTH THREE TIMES DAILY NEEDED FOR COUGH active Not Available Not Available No t Available hydrocodone 5 mg-acetamin ophen 325 mg tablet 09/07 completed Not Available Not Available Not Available hydrocortis one 1 % topical ointment DIRECTED APPLY A PEA SIZED AMOUNT ONCE DAILY TO GROIN RASH NEEDED FOR ITCHING active Not Available Not Available No t Available prednisone 20 mg tablet TAKE 1 TABLET BY MOUTH 3 TIMES A DAY 09/07 completed Not Available Not Available Not Available sulfamethox azole 800 mg-trimetho prim 160 mg tablet 09/07 completed Not Available Not Available Not Available aspirin 81 mg tablet,aleena yed release TAKE 1 TABLET BY MOUTH EVERY DAY active Not Available Not Available No t Available triamcinolo ne acetonide 0.1 % topical cream APPLY TO AFFECTED AREA TWICE A DAY 09/07 completed Not Available Not Available Not Available levothyroxi ne 75 mcg tablet TAKE 1 TABLET BY MOUTH ONCE DAILY active Not Available Not Available No t Available levothyroxi ne 100 mcg tablet TAKE 1 TABLET BY MOUTH EVERY DAY 04/19 completed Not Available Not Available Not Available oxycodone-a cetaminophe n 5 mg-325 mg tablet TAKE 1 TABLET BY MOUTH EVERY 4 HOURS 09/14 completed Not Available Not Available Not Available levothyroxi ne 88 mcg tablet TAKE 1 TABLET BY MOUTH ONCE DAILY 04/19 completed Not Available Not Available Not Available aspirin 325 mg tablet,aleena yed release TAKE 1 TABLET BY MOUTH TWICE DAILY FOR 2 WEEKS 09/28 completed Not Available Not Available Not Available bisacodyl 10 mg rectal suppository USE DIRECTED 09/07 completed Not Available Not Available Not Available levothyroxi ne 125 mcg tablet TK 1 T PO D. 09/07 completed Not Available Not Available Not Available triamcinolo ne acetonide 0.1 % topical ointment APPLY TOPICALLY TO AFFECTED AREA TWICE DAILY 09/07 completed Not Available Not Available Not Available docusate sodium 100 mg capsule TAKE 1 CAPSULE BY MOUTH TWICE A DAY 09/14 completed Not Available Not Available Not Available oxybutynin chloride ER 5 mg tablet,exte nded release 24 hr TAKE 1 TABLET BY MOUTH AT BEDTIME 09/07 completed Not Available Not Available Not Available hydroxyzine HCl 25 mg tablet TAKE 1 TABLET 4 TIMES EVERY DAY 09/07 completed Not Available Not Available Not Available mupirocin 2 % topical ointment 09/14 completed Not Available Not Available Not Available metoprolol succinate ER 25 mg tablet,exte nded release 24 hr 09/14 completed Not Available Not Available Not Available ergocalcife rol (vitamin D2) 1,250 mcg (50,000 unit) capsule TAKE 1 CAPSULE BY MOUTH ONE TIME PER WEEK 09/14 completed Not Available Not Available Not Available methylpredn isolone 4 mg tablets in a dose pack 09/07 completed Not Available Not Available Not Available oxybutynin chloride 5 mg tablet TAKE 1 TABLET BY MOUTH AT BEDTIME active Not Available Not Available No t Available fluticasone propionate 50 mcg/actuati on nasal spray,suspe nsion USE 1 SPRAY(S) IN EACH NOSTRIL ONCE DAILY 04/19 completed Not Available Not Available Not Available finasteride 5 mg tablet TAKE 1 TABLET BY MOUTH EVERY DAY 04/19 completed Not Available Not Available Not Available mometasone 0.1 % topical cream APPLY SPARINGLY TO AFFECTED AREA(S) TWICE DAILY DIRECTED 09/07 completed Not Available Not Available Not Available amoxicillin 875 mg-potassiu m clavulanate 125 mg tablet 09/07 completed Not Available Not Available Not Available oxycodone 5 mg tablet 09/07 completed Not Available Not Available Not Available Saline Nose 0.65 % spray aerosol ADMINISTE R 1 SPRAY INTO EACH NOSTRIL DAILY NEEDED 09/14 completed Not Available Not Available Not Available Arthritis Pain Relief (acetaminop hen) ER 650 mg tablet,exte nd release TAKE 1 TABLET BY MOUTH EVERY 6 HOURS NEEDED FOR PAIN 09/28 completed Not Available Not Available Not Available Senna Plus 8.6 mg-50 mg tablet TAKE 2 TABLETS BY MOUTH TWICE A DAY 09/07 completed Not Available Not Available Not Available GaviLyte-G 236 gram-22.74 gram-6.74 gram-5.86 gram oral solution 09/28 completed Not Available Not Available Not Available Eliquis 5 mg tablet TAKE 1 TABLET BY MOUTH TWICE A DAY *START AFTER 2.5MG TWICE A DAY FOR 10 DAY* 09/14 completed Not Available Not Available Not Available Eliquis 2.5 mg tablet TAKE 1 TABLET BY MOUTH TWICE A DAY 09/14 completed Not Available Not Available Not Available Fluzone High-Dose 4674-9574 (PF) 180 mcg/0.5 mL intramuscul ar syringe TO BE ADMINISTE RED BY PHARMACIS T FOR IMMUNIZAT ION 09/07 completed Not Available Not Available Not Available Fluzone High-Dose 8422-1798 (PF) 180 mcg/0.5 mL intramuscul ar syringe TO BE ADMINISTE RED BY PHARMACIS T FOR IMMUNIZAT ION 09/07 completed Not Available Not Available Not Available Tremali Ellipta 100 mcg-62.5 mcg-25 mcg powder for inhalation USE 1 INHALATIO N BY MOUTH DAILY RINSE AND SPIT active Not Available Not Available No t Available Fluzone High-Dose Quad (PF) 240 mcg/0.7 mL IM syringe PHARMACY ADMINISTE RED 04/19 completed Not Available Not Available Not Available Vitals Date Recorded Heart rate Respiratory rate Body temperature Oxygen saturation Oxygen saturation in Arterial blood by Pulse oximetry Systolic And Diastolic Provider Name and Address Organization Details Last Updated DateTime 56 /min 14 /min 97.8 [degF] 97 % 97 % 120/80 mm[Hg] Yu Stephanie [employer] 14:52:55 Date Recorded Body height Body mass index (BMI) Body weight Provider Name and Address Organization Details Last Updated DateTime 04/19/2025 172.72 cm 23.6 kg/m2 72157.82 g Kym Liliam [employer] 04/19/2025 14:47:48 Social History None recorded. Functional Status Question Answer Note LastModified by Organizat ion Details LastModified Time What is your level of alcohol consumption? Occasional [email or web address] Information not available 04/19/2025 Mental Status None recorded. Family History Relationship Description Onset Age of this Age Resolved Age Notes LastModified by Organization Details LastModified Time Father Heart disease [email or web address] Not available 03/23 14:54:05 Father Heart disease [email or web address] Not available 2024 14:54:26 Medical History Condition Response ARTHRITIS Y ALLERGIES/HAYFEVER Y COPD Y PULMONARY DISEASE Y BOWEL PROBLEMS Y THYROID DISEASE Y HEADACHES/MIGRAINES Y CANCER: SPECIFY Y Past Encounters Encounter ID Performer Location Encounter Start Date Encounter Closed Date Diagnosis/Indication Diagnosis SNOMED-CT Code Diagnosis ICD10 Code Diagnosis Note [id number] Hudson Pemberton DPM [facility] [place] [address] [place] [address] 04/19/2025 14:41:13 04/20/2025 11:14:24 Pain in both feet 3618231686 5669057 M79.671 M79.672 x-rays reviewed bilateral feet Arthritis 4191185 M19.90 discuss treatment optionsrec ommend supportive shoe gear- discussed more supportive shoes such as new balancepos sible over-the-c ounter orthotics Bunion 882631169 M21.61 1 M21.612 x-rays reviewedTr eatment options revieweddu e to patient's age recommend continuing conservati ve therapyCon servative therapy options reviewed in detail with the patient including but not limited to NSAIDs, wide shoe gear, Voltaren gel, ice therapy, bunion sleeve, toe spacer Health Concerns Section Related Observation LastModified by Organization Detai ls LastModified Time None Recorded Concern Status LastModified by Organization Details LastModified Time None Recorded Advance Directives Directive None Recorded Payers Insurance Date Sequence Insurance Name Policy Number Policy Garcia Covered Member ID Garcia Member ID Guarantor Name 04/19/2025 1 [place] Ernie Baker [id number] Ernie Baker 05/10/2025 2 [place] [id number] Ernie Baker [id number] Ernie Baker 04/19/2025 [employer] - DME[employer] ASSIGNED (MEDICARE DME REGION B) Ernie Baker [id number] Ernie Baker 04/19/2025 [employer] - DMEPOS ASSIGNED (MEDICARE DME REGION B) Ernie Baker [id number] Ernie Baker Notes Date Note Type Note Provider Name and Address Organization Details Recorded Time 04/19/2025 text/html . Patient is 80-year-old male who presents to the office with complaints of bunion pain and dorsal midfoot pain. Patient had x-rays which confirmed bunions to both feet. Patient denies any open wounds or injury. Patient main concern was the pain to the dorsal midfoot he states that the pain is a achy sensation is also sometimes tingling in nature he states the pain is worse when he is weight-bearing. Patient denies any treatment for this condition. Patient denies any other complaints. Hudson Pemberton DPM [address] [facility] [address], [place], [address], [place] [facility] 04/20/2025 09:44:38
--- NOTE | 2025-05-11 11:30 | NEURO_ITS ---
Impression: # Patient complains of numbness in all extremities and gait dysfunction. ? # No Carpal Tunnel Syndrome. ? # Right ulnar neuropathy across the elbow. ? 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 ? # Neurogenic changes noted on Needle/EMG exam, distally more than proximally. No fibs or myotonia noted. Nerve Conduction Studies ?Stim Site NR Peak (ms) P-T Amp (?V) Site1 Site2 Delta-P (ms) Dist (cm) Jonn (m/s) Left Median Anti Sensory (2-3nd Digit) Wrist ? 4.1 19.3 Wrist 2-3nd Digit 4.1 14.0 34 Wrist ? 4.1 19.6 Wrist 2-3nd Digit 4.1 14.0 34 Right Median Anti Sensory (2-3nd Digit) Wrist ? 3.8 20.4 Wrist 2-3nd Digit 3.8 14.0 37 Wrist ? 3.9 21.7 Wrist 2-3nd Digit 3.8 14.0 37 Left Radial Anti Sensory (Base 1st Digit) Wrist ? 2.6 13.9 Wrist Base 1st Digit 2.6 0.0 Right Radial Anti Sensory (Base 1st Digit) Wrist ? 2.9 20.4 Wrist Base 1st Digit 2.9 0.0 Left Sup Fibular Anti Sensory (Ant Lat Mall)??? NO RESPONSE 14 cm NR 14 cm Ant Lat Mall 16.0 Right Sup Fibular Anti Sensory (Ant Lat Mall)??? NO RESPONSE 14 cm NR 14 cm Ant Lat Mall 16.0 Left Sural Anti Sensory (Lat Mall)??? NO RESPONSE Calf NR Calf Lat Mall 16.0 Right Sural Anti Sensory (Lat Mall)??? NO RESPONSE Calf NR Calf Lat Mall 16.0 Left Ulnar Anti Sensory (5th Digit) Wrist ? 3.2 16.6 Wrist 5th Digit 3.2 14.0 44 Right Ulnar Anti Sensory (5th Digit) Wrist ? 3.5 17.1 Wrist 5th Digit 3.5 14.0 40 ?Stim Site NR Onset (ms) O-P Amp (mV) Site1 Site2 Delta-0 (ms) Dist (cm) Jonn (m/s) Left Median Motor Run #1 (Abd Poll Brev) Wrist ? 4.9 4.7 Elbow Wrist 1.6 26.0 162 Elbow ? 3.3 4.3 Left Median Motor Run #2 (Abd Poll Brev) Wrist ? 3.8 4.6 Elbow Wrist 5.6 30.0 54 Elbow ? 9.4 3.8 Right Median Motor (Abd Poll Brev) Wrist ? 3.7 4.0 Elbow Wrist 6.6 30.0 45 Elbow ? 10.3 3.9 Left Peroneal Motor (Vastus Med) Ankle ? 4.3 3.4 Popit Ankle 10.4 41.0 39 Popit ? 14.7 2.5 Right Peroneal Motor (Vastus Med) Ankle ? 4.5 3.9 Popit Ankle 10.4 39.0 38 Popit ? 14.9 3.1 Left Tibial Motor (Abd Gastelum Brev) Ankle ? 4.8 1.3 Knee Ankle 10.4 42.0 40 Knee ? 15.2 1.2 Right Tibial Motor (Abd Gastelum Brev) Ankle ? 4.4 1.9 Knee Ankle 10.2 42.0 41 Knee ? 14.6 1.7 Left Ulnar Motor (Abd Dig Minimi) Wrist ? 3.2 6.0 A Elbow Wrist 5.0 29.0 58 A Elbow ? 8.2 5.2 B Elbow Wrist 3.6 21.0 58 B Elbow ? 6.8 3.7 Right Ulnar Motor (Abd Dig Minimi) Wrist ? 3.0 4.2 A Elbow Wrist 5.7 28.0 49 A Elbow ? 8.7 3.9 B Elbow Wrist 3.6 21.0 58 B Elbow ? 6.6 2.5 Electromyography ?Side Muscle Nerve Root Ins Act Fibs Amp Dur Recrt Comment Right 1stDorInt Ulnar C8-T1 Nml Nml Nml Nml Nml Right Ext Indicis Radial (Post Int) C7-8 Nml Nml Nml Nml Nml Right Ext Digitorum Radial (Post Int) C7-8 Nml Nml Nml Nml Nml Right BrachioRad Radial C5-6 Nml Nml Nml Nml Nml Right PronatorTeres Median C6-7 Nml Nml Nml Nml Nml Right Abd Poll Brev Median C8-T1 Nml Nml Nml Nml Nml Right ABD Dig Min Ulnar C8-T1 Nml Nml Nml Nml Nml Right FlexPolLong Median (Ant Int) C7-8 Nml Nml Nml Nml Nml Right Abd Poll Long Radial (Post Int) C7-8 Nml Nml Nml Nml Nml Right AntTibialis Dp Br Fibular L4-5 Nml Nml Nml >12ms +1 Right Gastroc Tibial S1-2 Nml Nml Nml >12ms +1 Right Fibularis Long Sup Br Fibular L5-S1 Nml Nml Nml >12ms +1 Right Flex Dig Long Tibial L5-S2 Nml Nml Nml >12ms +1 Right Ext Dig Brev Dp Br Fibular L5, S1 Nml Nml Nml >12ms +1 Right QuadratusFem QuadFemoris L4-5, S1 Nml Nml Nml >12ms +1 Left AntTibialis Dp Br Fibular L4-5 Nml Nml Nml >12ms +1 Left Gastroc Tibial S1-2 Nml Nml Nml >12ms +1 Left Fibularis Long Sup Br Fibular L5-S1 Nml Nml Nml >12ms +1 Left Flex Dig Long Tibial L5-S2 Nml Nml Nml >12ms +1 Left Ext Dig Brev Dp Br Fibular L5, S1 Nml Nml Nml >12ms +1 Left QuadratusFem QuadFemoris L4-5, S1 Nml Nml Nml >12ms +1 Left 1stDorInt Ulnar C8-T1 Nml Nml Nml Nml Nml Left Ext Indicis Radial (Post Int) C7-8 Nml Nml Nml Nml Nml Left Ext Digitorum Radial (Post Int) C7-8 Nml Nml Nml Nml Nml Left BrachioRad Radial C5-6 Nml Nml Nml Nml Nml Left PronatorTeres Median C6-7 Nml Nml Nml Nml Nml Left Abd Poll Brev Median C8-T1 Nml Nml Nml Nml Nml Left ABD Dig Min Ulnar C8-T1 Nml Nml Nml Nml Nml Left FlexPolLong Median (Ant Int) C7-8 Nml Nml Nml Nml Nml Left Abd Poll Long Radial (Post Int) C7-8 Nml Nml Nml Nml Nml Left Biceps Musculocut C5-6 Nml Nml Nml Nml Nml Left Triceps Radial C6-7-8 Nml Nml Nml Nml Nml Left Deltoid Axillary C5-6 Nml Nml Nml Nml Nml Right Biceps Musculocut C5-6 Nml Nml Nml Nml Nml Right Triceps Radial C6-7-8 Nml Nml Nml Nml Nml Right Deltoid Axillary C5-6 Nml Nml Nml Nml Nml
== END 2025-05-11 09:16 | disposition home or self-care (01) ==
LOC: ANHNEURO 09:16
PROVIDERS: PCP Family Medicine; Visit Provider Psychiatry & Neurology Neurology
DX: G56.23 Lesion of ulnar nerve, bilateral upper limbs (principal); G62.9 Polyneuropathy, unspecified; G60.0 Hereditary motor and sensory neuropathy; E11.9 Type 2 diabetes mellitus without complications
CPT/HCPCS: 95886; 95913

== ENCOUNTER 2025-05-27 10:34 | Outpatient (CLI) | payer MEDICARE, SELFPAY ==
--- OUTSIDE RECORDS SUMMARY | 2025-05-27 10:37 | XMS_ITS | Patient Health Record ---
Author Organization [facility] [employer] Address [address] [facility] [address] [place] [address] Care Team Providers Care Fox Farmer Name Role Phone Kevin Cee Unavailable [phone] Reason For Referral No Information Medications Medication [...] Insured Coverage Start Date Coverage End Date [place] [address] [facility] [address] [id number] F[place]ON FERMIN Self - patient is the insured [facility] Medicare Supplement [address] [place] [address] [id number] F[place] FERMIN Self - patient is the insured
--- OUTSIDE RECORDS SUMMARY | 2025-05-27 10:37 | XMS_ITS | Clinical Summary ---
Author Organization [facility] Address [address] [place] [address] Care Team Providers Care Wind Turbine Sheet Metal Worker Name Role Phone Herbert Gan MD Primary Care Provider [phone] Allergies No known active allergies Medications levothyroxine (SYNTHROID) 100 MCG tablet Take 1 tablet (100 mcg total) by mouth every morning. Active aspirin 325 MG tablet Take 1 tablet (325 mg total) by mouth daily. Active Active Problems Problem Noted Date Diagnosed Date Sepsis ([facility]) 04/16/2023 Sepsis due to pneumonia ([facility]) 2022 Immunizations Immunization Administration Dates Next Due [...] often do you attend chur ch or tenriism services? More than 4 times per year 04/16/2023 Do you belong to any clubs o r organizations such as roman catholic groups, unions, fraternal or athletic groups, or [...] and heating? Not hard at all 04/16/2023 [facility] [place] [facility] Occupat ional Health - Occupational Stress [...] place to sleep or slept in a halfway (including now)? No 04/16/2023 Sex and Gender [...] 08/21/2021, 12/24/2020, Additional history exists PHQ-2 (Physician [place]) 10/21/2024 DTaP, Tdap and Td Vaccines (2 [...] independently Lifestyle No Ashvin Alanis, RN Insurance [facility] MEDICARE Advance Directives * Full Code (Latest Code Status on File) Date Activated Date Inactivated Comments 04/14/2023 5:20 AM 04/15/2023 1:38 PM Care Teams Wind Turbine Sheet Metal Worker Relationship Specialty Start Date End Date Herbert Gan MD [address] [place] [address] PCP - General 01/02/13
--- OUTSIDE RECORDS SUMMARY | 2025-05-27 10:38 | XMS_ITS | Clinical Summary ---
Author Organization [facility] Address [facility] [place] [address] Care Team Providers Care Geoscience Technician Name Role Phone Herbert Gan MD Primary [...] Description 03/09/2025 1:30 PM CDT Procedure visit [facility] Otolaryngology [address] [place], [place] [address] [address] Kim Salazar Au.D. 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 Gender Identity Not on file Sexual Orientation Not on file Obstetrics History Last Filed Vital Signs Vital Sign Reading Time Taken Comments Blood Pressure 132/77 11/27/2018 1:11 PM WIRE STITCHER MACHINE Pulse 94 01/23/2018 9:12 AM CDT Temperature - - Respiratory Rate - - Oxygen Saturation 90% 01/23/2018 9:12 AM CDT Inhaled Oxygen Concentration - - Weight 88.9 kg (196 lb) 11/27/2018 1:11 PM WIRE STITCHER MACHINE Height 165.1 cm (5' 5) 11/27/2018 1:11 PM WIRE STITCHER MACHINE Body Mass Index 32.62 11/27/2018 1:11 PM WIRE STITCHER MACHINE Plan of Treatment Not on file Insurance MEDICARE MEDICARE [facility] Member Subscriber Plan / Payer (Ef fective 2018-Present) Name:Ernie Baker Relation to Subscriber:Self Name:ERNIE BAKER Payer ID:[id number] (NAIC) Type: ALLIANCE Address: [address] [place] [id number] [facility] Care Teams Geoscience Technician Relationship Specialty Start Date End Date Herbert Gan MD PCP - General 01/23/18
[2025-05-27 11:29] LABS: Alanine Aminotransferase 16 U/L (6-50); Albumin Level 4.0 g/dL (3.5-5.1); Alkaline Phosphatase 64 U/L (38-126); Aspartate Amino Transferase 30 U/L (17-59); Bilirubin,Total 1.8 mg/dL (0.2-1.3); Cholesterol 225 mg/dL (0-200); HDL Direct 49 mg/dL; Total Protein 6.9 g/dL (6.3-8.2); Triglycerides 71 mg/dL (<150)
== END 2025-05-27 10:35 | disposition home or self-care (01) ==
LOC: ANHLAB 10:35
PROVIDERS: PCP Family Medicine; Visit Provider Family Medicine
DX: E78.2 Mixed hyperlipidemia (principal); Z13.220 Encounter for screening for lipoid disorders
CPT/HCPCS: 36415; 80061; 80076

== ENCOUNTER 2025-07-30 12:12 | Outpatient (CLI) | payer MEDICARE, SELFPAY ==
[2025-07-30 12:47] LABS: Hematocrit 44.9 % (42.0-52.0); Hemoglobin 15.1 g/dL (14.0-18.0); Immature Granulocyte Percent A 0.2 % (0-0.5); Lymphocytes Absolute Auto 2.65 K/mm3 (0.9-3.2); Mean Corpuscular HGB Conc 33.6 g/dl (32-36); Mean Corpuscular Hemoglobin 30.9 pg (26-34); Mean Corpuscular Volume 91.8 fl (80-100); Nucleated Red Blood Cells Absolute Auto 0.000 K/mm3 (0.0-0.012); Nucleated Red Blood Cells Perc 0.0 % (0.0-0.2); Platelet Count Result 204 k/mm3 (150-375); Red Blood Count 4.89 M/mm3 (4.6-6.20); White Blood Count 8.5 K/mm3 (4.5-10.0)
[2025-07-30 13:10] LABS: Alanine Aminotransferase 20 U/L (6-50); Albumin Level 4.2 g/dL (3.5-5.1); Alkaline Phosphatase 61 U/L (38-126); Anion Gap 7 mmol/L (4-12); Aspartate Amino Transferase 36 U/L (17-59); Bilirubin,Total 2.4 mg/dL (0.2-1.3); Blood Urea Nitrogen 12 mg/dL (9-20); Calcium 10.2 mg/dL (8.4-10.2); Carbon Dioxide 27 mmol/L (22-30); Chloride 106 mmol/L (98-107); Cholesterol 238 mg/dL (0-200); Estimated Glomerular Filt Rate > 60; Glucose 96 mg/dL (65-110); HDL Direct 52 mg/dL; Potassium 3.6 mmol/L (3.4-5.0); Sodium 140 mmol/L (137-145); Total Protein 7.2 g/dL (6.3-8.2); Triglycerides 70 mg/dL (<150)
[2025-07-30 13:26] LABS: Free T4 Free Thyroxine 1.20 ng/dL (0.78-2.19)
[2025-07-30 13:45] LABS: Thyroid Stimulating Hormone 0.615 uIU/mL (0.465-4.680)
[2025-07-30 14:04] LABS: Vitamin B12 914.0 pg/mL (239-931)
== END 2025-07-30 12:13 | disposition home or self-care (01) ==
PROVIDERS: PCP Family Medicine; Visit Provider Nurse Practitioner Adult Health
DX: E03.9 Hypothyroidism, unspecified (principal); F32.1 Major depressive disorder, single episode, moderate; E78.2 Mixed hyperlipidemia; J32.9 Chronic sinusitis, unspecified; N40.0 Benign prostatic hyperplasia without lower urinary tract symptoms; F03.A0 Unspecified dementia, mild, without behavioral disturbance, psychotic disturbance, mood disturbance, and anxiety
CPT/HCPCS: 36415; 80053; 80061; 82607; 82746; 84439; 84443; 85025